=== PATIENT | male | born 1945 | race Caucasian/White ===

== ENCOUNTER 2016-12-18 12:58 | Outpatient (CLI) | payer MEDICARE ==
[~2016-12-18] VITALS: Ht 185.4 cm; Wt 93.0 kg
[~2016-12-18 12:58] MED LIST: ELMIRON; FNST5T; LNS30CCR; TMSL.4C
--- OUTSIDE RECORDS SUMMARY | 2016-12-18 13:01 | XMS REPORT | Continuity of Care Document ---
Author Author [facility] Organization [facility] Address Unknown Phone Unavailable Care Team Providers Care Senior Oracle Database Administrator Name Role Phone Scottie Castellon PCP [phone] Source Comments Some departments are not documenting in the electronic medical record. If you do not see the information that you expected, contact Release of Information in the Health Information Management department at [phone] for further assistance in locating additional records.[facility] Active Allergies and Adverse Reactions No Known Allergies Current Medications Prescription Sig. Disp. Refills Start End Date Status Date pentosan polysulfate Take 100 mg by mouth Active sodium (ELMIRON) 100 mg once. capsule tamsulosin (FLOMAX) 0.4 Take 0.4 mg by mouth Active mg capsule daily. Do not crush, chew or open capsules. Take 30 minutes following the same meal each day. lansoprazole DR(+) Take 30 mg by mouth daily Active (PREVACID) 30 mg capsule 30 minutes before breakfast. finasteride (PROSCAR) 5 Take 5 mg by mouth daily. Active mg tablet polyethylene glycol 3350 1 scoop daily. 595 g 1 06/06/20 Active (GLYCOLAX; MIRALAX) 17 16 gram/dose powder linaclotide(+) (LINZESS) Take 1 Cap by mouth daily 90 Cap 1 08/01/20 Active 290 mcg capsule 30 minutes before 16 breakfast. promethazine (PHENERGAN) Take 1 Tab by mouth four 90 Tab 1 08/01/20 Active 12.5 mg tablet times daily as needed for 16 Nausea or Vomiting. scopolamine Apply 1 Patch to top of 3 Patch 0 08/11/20 Active (TRANSDERM-SCOP) 1.5 mg 3 skin as directed every 72 16 day patch hours. Active Problems Not on file Social History Tobacco Use Types Packs/Day Years Used Date Former Smoker Alcohol Use Drinks/Week oz/Week Comments Yes 0 Standard 0.0 rare drinks or equivalent Last Filed Vital Signs Vital Sign Reading Time Taken Blood Pressure 126/70 08/01/2016 9:33 AM CDT Pulse 54 08/01/2016 9:33 AM CDT Temperature 36.5 C (97.7 F) 08/01/2016 9:33 AM CDT Respiratory Rate 16 08/01/2016 9:33 AM CDT Height 1.803 m (5' 11") 08/01/2016 9:33 AM CDT Weight 90.084 kg (198 lb 9.6 oz) 08/01/2016 9:33 AM CDT Body Mass Index 27.71 08/01/2016 9:33 AM CDT Oxygen Saturation 97% 08/01/2016 9:33 AM CDT Plan of Care Health Maintenance Due Date Last Done Comments Physical (Comprehensive) 1950 Exam Pertussis Vaccine 1954 Tetanus Vaccine 1960 Colorectal Cancer 1993 Screening Shingles Vaccine 2003 Prevnar/Pneumovax (#1) 2008 Influenza Vaccine 06/08/2016 Results from Last 3 Months Not on file
[2016-12-18] MEDS ORDERED: TRIAMCINOLONE ACET (KENALOG-40) 40 MG/ML 1 ML VIAL ONE (13:15)
[2016-12-18] MEDS ORDERED: BUPIVACAINE 0.25% 30 ML (SENSORCAINE) VIAL ONE (13:15)
[2016-12-18] MEDS ORDERED: LIDOCAINE 1% INJ 20 ML (XYLOCAINE) VIAL ONE (13:15)
[2016-12-18 13:28] VITALS: BP 145/83
[2016-12-18 14:06] VITALS: BP 159/86
--- NOTE | 2016-12-18 14:35 | Pain Medicine-Procedure ---
Procedure Pre-Op/Post-Op Diagnosis Diagnosis: sacrococcygeal disorder Indications for Operation Coccyx pain Attending Surgeon Demarco Procedure Date of Service: Dec 18, 2016 Procedure performed: Sacrococcygeal joint injection under fluoroscopic guidance PROCEDURE IN DETAIL: After obtaining informed consent from the patient, the patient's chart was reviewed. The patient was brought to the procedure room and placed in the supine position. The low back overlying the sacrum and coccyx was prepped with antiseptic solution. Then, the sacrococcygeal joint was identified under fluoroscopic guidance. 2 ml's of 1% Lidocaine was used to anesthetize the skin. A 22 gauge 3.5 inch spinal needle was inserted through the skin under fluoroscopic guidance until the needle was in the sacrococcygeal joint. Placement of the needle was confirmed with AP and lateral views. Then, after negative aspiration, 80 mg of kenalog was injected mixed with 2 ml of 0.25% Marcaine. The needle was then flushed with 1% lidocaine and removed. The patient tolerated the procedure well and a band-Aid was applied and the patient was taken to the recovery room in stable condition. Complications None ROXANA PETE MD Dec 18, 2016 2:35 pm
== END 2016-12-18 14:08 | disposition home or self-care (01) ==
LOC: CARD 12:58
PROVIDERS: ATTEND Pain Medicine Pain Medicine
DX: M53.3 Sacrococcygeal disorders, not elsewhere classified (principal); Z79.899 Other long term (current) drug therapy
CPT/HCPCS: 20605; 77002

== ENCOUNTER 2020-07-23 08:32 | Observation (INO) | payer MEDICARE ==
[~2020-07-23] VITALS: Ht 182 cm; Wt 101.1 kg
[2020-07-23] MEDS ORDERED: ACETAMINOPHEN 500 MG TAB (TYLENOL) PO PRN (09:15)
[2020-07-23] MEDS ORDERED: MELATONIN 3 MG TABLET PO PRN (09:15)
[2020-07-23] MEDS ORDERED: NS IV 1000 ML 2,100 ML IV ONE (09:15)
[2020-07-23] MEDS ORDERED: morphine INJ 10 MG/ML 1ML (SYR OR VIAL) IVP PRN (09:15)
[2020-07-23] MEDS ORDERED: HEParin 1000 UNIT/ML (10ML VIAL) FOR BOLUS IV SCH ×2 (09:15→14:15)
[2020-07-23] MEDS ORDERED: HYDROcodone/APAP 5 MG/325 MG (LORTAB) TAB PO PRN (09:15)
[2020-07-23] MEDS ORDERED: VANCOMYCIN INJECTION 0.1 MG in NS (IVPB) 250 ML IV SCH (09:15)
[2020-07-23] MEDS ORDERED: ALPRAZolam 0.25 MG (XANAX) TAB PO PRN (09:15)
[2020-07-23] MEDS ORDERED: diphenhydrAMINE 25 MG TAB (BENADRYL) PO PRN (09:15)
[2020-07-23] MEDS ORDERED: CALCIUM CARBONATE 500 MG (TUMS) TAB.CHEW PO PRN (09:15)
[2020-07-23] MEDS ORDERED: NS IV ONE (09:15)
[2020-07-23] MEDS ORDERED: ONDANSETRON 4 MG/2 ML (SDV) Z0FRAN IVP PRN (09:15)
[2020-07-23] MEDS ORDERED: DOCUSATE SODIUM 100 MG (COLACE) CAP PO PRN (09:15)
[2020-07-23] MEDS ORDERED: CEFEPIME INJECTION 1,000 MG in WATER (STERILE) FOR INJECTION 10 ML IV SCH (12:00)
--- NOTE | 2020-07-23 13:44 | Diagnostic Imaging Report ---
INDICATION: Pneumonia. TIME OF EXAM: 01:30 p.m. COMPARISON: Comparison is made with prior chest from 01/14/2008. FINDINGS: Heart size is stable. There is some patchy airspace infiltrate in the right midlung. Left lung is clear. The pulmonary vascularity is normal. There appears to be some density in the medial right base. There is no pneumothorax. IMPRESSION: Right-sided parenchymal densities, suspicious for pneumonia. The left lung is clear. Dictated by: Dictated on workstation # [id number]
[2020-07-23] MEDS: NS IV 1000 ML 1,000 ML IV SCH ×2 (13:58→14:39)
[2020-07-23 13:59] LABS: BASOPHILS # (AUTO) 0.1 10^3/uL (0.0-0.1); BASOPHILS % (AUTO) 1 % (0-10); EOSINOPHILS # (AUTO) 0.1 10^3/uL (0.0-0.3); EOSINOPHILS % (AUTO) 1 % (0-10); HEMATOCRIT 48 % (40-54); HEMOGLOBIN 15.5 g/dL (13.3-17.7); LYMPHOCYTES # (AUTO) 1.3 10^3/uL (1.0-4.0); LYMPHOCYTES % (AUTO) 17 % (12-44); MEAN CORPUSCULAR HEMOGLOBIN 30 pg (25-34); MEAN CORPUSCULAR HGB CONC 32 g/dL (32-36); MEAN CORPUSCULAR VOLUME 93 fL (80-99); MEAN PLATELET VOLUME 10.1 fL (9.0-12.2); MONOCYTES # (AUTO) 0.6 10^3/uL (0.0-1.0); MONOCYTES % (AUTO) 8 % (0-12); NEUTROPHILS # (AUTO) 5.5 10^3/uL (1.8-7.8); NEUTROPHILS % (AUTO) 73 % (42-75); PLATELET COUNT 192 10^3/uL (130-400); WHITE BLOOD COUNT 7.6 10^3/uL (4.3-11.0)
[2020-07-23] MEDS: methylPREDNISolone 40 MG/ML (Solu-MEDROL) VIAL IV SCH ×3 (14:00→19:43)
--- NOTE | 2020-07-23 14:03 | Consultation-Cardiology ---
HPI-Cardiology Cardiology Consultation: Date of Consultation 07/23/20 Time Seen by a Provider: 13:40 Date of Admission 07-23-2020 Attending Physician Samantha Castle DO Admitting Physician Scottie Castellon MD Consulting Physician YURI ROSE MD MA FACP [facility] Primary Senior Sales Administrator: Dr. Layne HPI: Chief Complaint: Reason for cardiology consultation: A-fib with RVR HPI Mr. Perez is a 74 year old male transferred to ICU 3 from [facility]. He is very [place]. He reports he began to feel SOB, weak, cough starting on Sunday of this week. He states he went to see his PCP where he was started on abx tx. He began to feel more SOB today so he went to the ED at [facility] and was found to have RUL, RLL pneumonia and be in a-fib with RVR. He denies any previous h/o a-fib. He denies any CP or palpitations or LE swelling. His main c/o SOB worse with exertion. He reports he had a colostomy placed approx 6 weeks ago d/t "bowels not working right". Review of Systems-Cardiology Review of Systems Constitutional: No chills, No fever; malaise Eyes: No vision change Ears/Nose/Throat: No epistaxis, No recent hearing loss (chronic [place]) Respiratory: As described under HPI Cardiovascular: As described under HPI Gastrointestinal: No constipation, No diarrhea, No nausea, No vomiting; other (colostomy) Genitourinary: No dysuria, No urine frequency changes, No urine coloration changes Skin: No rash on exposed areas, No ulcerations on exposed areas Psychiatric/Neurological: No anxiety, No depression, No focal weakness, No syncope Hematologic: No bleeding abnormalities ENW-Vnoryz-Rxkclc Hx Past Medical History PMH As described under Assessment. Family Medical History Family Medical History: No reported family h/o CAD. Allergies and Home Medications Allergies Coded Allergies: No Known Drug Allergies (Unverified Allergy, Unknown, 01/21/08) Home Medications Albuterol Sulfate 18 Gm Hfa.aer.ad, 2 PUFF INH Q4H PRN for SHORTNESS OF BREATH, (Reported) Amoxicillin/Potassium Clav 1 Each Tablet, 1 EA PO BID, (Reported) FILLED 07-20-2020 #20/10 DAY SUPPLY Aspirin 81 Mg Tablet.dr, 81 MG PO DAILY, (Reported) Finasteride 5 Mg Tablet, 5 MG PO DAILY, (Reported) Fluticasone/Vilanterol 1 Each Blst.w.dev, 1 PUFF INH DAILY, (Reported) Lansoprazole 30 Mg Capsule.dr, 30 MG PO DAILY, (Reported) Tamsulosin HCl 0.4 Mg Cap, 0.4 MG PO DAILY, (Reported) Patient Home Medication List Home Medication List Reviewed: Yes Physical Exam-Cardiology Physical Exam Vital Signs/I&O 07/23/20 07/23/20 07/23/20 07/23/20 13:00 14:00 15:00 15:33 Temp 36.0 36.0 Pulse 116 123 87 87 B/P (MAP) 148/107 104/83 Pulse Ox 97 98 96 96 O2 Delivery Nasal Cannula Nasal Cannula O2 Flow Rate 2.00 2.00 2.00 07/23/20 16:00 Pulse 92 B/P (MAP) 112/80 Pulse Ox 95 O2 Delivery Nasal Cannula O2 Flow Rate 2.00 Capillary Refill : Less Than 3 Seconds Constitutional: AAO x 3, well-developed, well-nourished HEENT: PERRL, hard of hearing, oral hygience is good Neck: No carotid bruit; carotid pulses are 2 + bilaterally Respiratory: No accessory muscle use, No respiratory distress; chest expansion is symmetric, chest is bilaterally symmetric, other (diminished RUL, RLL) Cardiovascular: irregularly irregular; No JVD Gastrointestinal: soft, round, other (colostomy LLQ) Neurologic/Psychiatric: grossly intact (moves all extremities) Skin: No rash on exposed areas, No ulcerations on exposed areas Data Review Labs Laboratory Tests 07/23/20 13:47: White Blood Count 7.6, Red Blood Count 5.22, Hemoglobin 15.5, Hematocrit 48, Mean Corpuscular Volume 93, Mean Corpuscular Hemoglobin 30, Mean Corpuscular Hemoglobin Concent 32, Red Cell Distribution Width 14.2, Platelet Count 192, Mean Platelet Volume 10.1, Immature Granulocyte % (Auto) 0, Neutrophils (%) (Auto) 73, Lymphocytes (%) (Auto) 17, Monocytes (%) (Auto) 8, Eosinophils (%) (Auto) 1, Basophils (%) (Auto) 1, Neutrophils # (Auto) 5.5, Lymphocytes # (Auto) 1.3, Monocytes # (Auto) 0.6, Eosinophils # (Auto) 0.1, Basophils # (Auto) 0.1, Immature Granulocyte # (Auto) 0.0, Prothrombin Time 14.0, INR Comment 1.0, Activated Partial Thromboplast Time 50H, D-Dimer 3.32H, Sodium Level 142, Potassium Level 4.2, Chloride Level 107, Carbon Dioxide Level 21, Anion Gap 14, Blood Urea Nitrogen 10, Creatinine 0.96, Estimat Glomerular Filtration Rate > 60, BUN/Creatinine Ratio 10, Glucose Level 101, Lactic Acid Level 1.41, Calcium Level 8.6, Corrected Calcium 8.6, Total Bilirubin 0.9, Aspartate Amino Transf (AST/SGOT) 15, Alanine Aminotransferase (ALT/SGPT) 18, Alkaline Phosphatase 56, Troponin I < 0.028, B-Type Natriuretic Peptide 385.4H, Total Protein 7.2, Albumin 4.0 07/23/20 13:50: Magnesium Level 1.7, Thyroid Stimulating Hormone (TSH) 2.23 07/23/20 14:45: Coronavirus 2019 ([place]) Negative Radiology NAME: SABRINA PEREZ [facility] REC#: [id number] PT STATUS: ADM Karla : 1945 PHYSICIAN: SAMANTHA CASTLE DO ADMIT DATE: 07/23/20/ICU Draft Date of Exam:07/23/20 CHEST 1 VIEW, AP/PA ONLY INDICATION: Pneumonia. TIME OF EXAM: 01:30 p.m. COMPARISON: Comparison is made with prior chest from 01/14/2008. FINDINGS: Heart size is stable. There is some patchy airspace infiltrate in the right midlung. Left lung is clear. The pulmonary vascularity is normal. There appears to be some density in the medial right base. There is no pneumothorax. IMPRESSION: Right-sided parenchymal densities, suspicious for pneumonia. The left lung is clear. Dictated on workstation # [id number] Dict: 07/23/20 1336 Trans: 07/23/20 1344 [id number] [id number] Interpreted by: ERIN HOBBS MD Electronically signed by: ECG Impression ECG Initial ECG Impression: Atrial Fibrillation A/P-Cardiology Assessment/Admission Diagnosis A-fib with RVR, new onset, first documented on 07/23/20 Pneumonia - management per medical/pulmonary services Stress test of December [address] Layne showed occ PAC, PVC with no evidence of ischemia or infarction H/O asymptomatic sinus bradycardia HTN BPH Mild bilat carotid arterial disease per u/s by Dr. Layne 2018 Colostomy Documented h/o heavy ETOH usage (6-8 beers per night) GERD Discussion and Recomendations Treat tachycardia with calcium channel alf and/or beta-blockers Start OAC with Eliquis and stop Heparin Advise echocardiogram to eval cardiac structure and function Monitor lab closely - results from [facility] reviewed. ECG from [facility] reviewed Pneumonia - management per medical/pulmonary services PPI for GI prophylaxis COVID PUI Advise immediate cessation of alcohol use - monitor for withdrawal Further recs will be based on his hospital course We would like to thank medical services for this consult Clinical Quality Measures DVT/VTE Risk/Contraindication: Risk Factor Score Per Nursin RFS Level Per Nursing on Admit: 3=High Physician Assessment Physician Assessment The above note documents the mutual evaluation of the patient by Richard Park APRN, and me I have updated the note in italics CECILIA PARK [employer] Jul 23, 2020 14:03 YURI ROSE MD [facility] Jul 23, 2020 16:32
[2020-07-23] MEDS ORDERED: HEParin DRIP 25000 UNIT/500ML 500 ML IV SCH (14:09)
[2020-07-23 14:10] LABS: CHLORIDE 107 MMOL/L (98-107); POTASSIUM 4.2 MMOL/L (3.6-5.0); SODIUM 142 MMOL/L (135-145)
[2020-07-23 14:12] LABS: CALCIUM 8.6 MG/DL (8.5-10.1)
[2020-07-23 14:13] LABS: GLUCOSE 101 MG/DL (70-105); TOTAL PROTEIN 7.2 GM/DL (6.4-8.2)
[2020-07-23 14:14] LABS: BILIRUBIN,TOTAL 0.9 MG/DL (0.1-1.0); CARBON DIOXIDE 21 MMOL/L (21-32); FIBRIN DEGRADATION PRODUCTS 3.32 UG/ML (0.00-0.49)
[2020-07-23] MEDS ORDERED: morphine INJ 4 MG/ML 1 ML (VIAL/SYRINGE) IV PRN (14:15)
[2020-07-23] MEDS ORDERED: APIXABAN 5 MG (ELIQUIS) TABLET PO NR (14:15)
[2020-07-23] MEDS ORDERED: PANTOPRAZOLE 40 MG (PROTONIX) TAB PO NR (14:15)
[2020-07-23 14:16] LABS: ALKALINE PHOSPHATASE 56 U/L (40-136); CREATININE SERUM 0.96 MG/DL (0.60-1.30); GFR ESTIMATED > 60
[2020-07-23 14:17] LABS: BUN/CREATININE RATIO 10
[2020-07-23 14:19] LABS: ALANINE AMINOTRANSFERASE 18 U/L (0-55)
[2020-07-23] MEDS: dilTIAZem DRIP PRE-MIX 125 ML IV SCH (14:39)
[2020-07-23 14:49] LABS: MAGNESIUM 1.7 MG/DL (1.6-2.4)
--- NOTE | 2020-07-23 14:51 | NUR ---
CR 0.96; CR CL > 60; PHARMACY TO DOSE VANCO X 3 DAYS; PT RECEIVED VANCO 1 GM THIS AM AT [facility]; CONTINUE WITH VANCO 1 GM IV AT 1500 (FOR VANC 2 GM BOLUS) THEN VANCO 1000 MG IV Q12H X 3 DAYS
[2020-07-23] MEDS ORDERED: VANCOMYCIN 1 GM/NS 250 ML IVPB IV NR ×2 (15:00)
[2020-07-23 15:33] VITALS: BP 104/83
--- NOTE | 2020-07-23 15:40 | Pulmonary Consultation ---
History of Present Illness History of Present Illness Time Seen by Provider: 15:35 Date of Admission Allergies and Home Medications Allergies Coded Allergies: No Known Drug Allergies (Unverified Allergy, Unknown, 01/21/08) Home Medications Albuterol Sulfate 18 Gm Hfa.aer.ad, 2 PUFF INH Q4H PRN for SHORTNESS OF BREATH, (Reported) Amoxicillin/Potassium Clav 1 Each Tablet, 1 EA PO BID, (Reported) FILLED 07-20-2020 #20/10 DAY SUPPLY Aspirin 81 Mg Tablet.dr, 81 MG PO DAILY, (Reported) Finasteride 5 Mg Tablet, 5 MG PO DAILY, (Reported) Fluticasone/Vilanterol 1 Each Blst.w.dev, 1 PUFF INH DAILY, (Reported) Lansoprazole 30 Mg Capsule.dr, 30 MG PO DAILY, (Reported) Tamsulosin HCl 0.4 Mg Cap, 0.4 MG PO DAILY, (Reported) Review of Systems Time Seen by Provider: 05:13 Sepsis Event Evaluation Height, Weight, BMI Height: 6'1.00" Weight: 205lbs. 0.0oz. 92.876699xf; 30.12 BMI Method: Exam Exam Vital Signs Date Time Temp Pulse Resp B/P (MAP) Pulse Ox O2 Delivery O2 Flow Rate FiO2 07/23/20 15:00 87 104/83 96 Nasal Cannula 2.00 07/23/20 14:00 123 98 Nasal Cannula 2.00 07/23/20 13:00 36.0 116 148/107 97 2.00 Height & Weight Height: 6'1.00" Weight: 205lbs. 0.0oz. 92.196754tx; 30.12 BMI Method: General Appearance: WD/WN, Anxious, Mild Distress HEENT: PERRL/EOMI, Normal ENT Inspection, Pharynx Normal Neck: Full Range of Motion, Normal Inspection, Non Tender Respiratory: Chest Non Tender, Decreased Breath Sounds Cardiovascular: Regular Rate, Rhythm, No Edema Capillary Refill: Less Than 3 Seconds Gastrointestinal: normal bowel sounds, non tender, soft Extremity: Normal Capillary Refill Neurologic/Psychiatric: Alert, Oriented x3 Skin: Normal Color, Warm/Dry Lymphatic: No Adenopathy Results Lab Laboratory Tests 07/23/20 13:47 Assessment/Plan Assessment/Plan Pneumonia -Currenlty NS 150 -Jaramillo cultures -Currently on Vanco and Cefepime -PUI Afib RVR -Cardizem gtt -Once Cardizem gtt is changed to PO and when ok with cardiology transfer to [facility] with tele. HTN Stress test of December [address] Layne showed occ PAC, PVC with no evidence of ischemia or infarction BERTHA NGUYEN DO Jul 23, 2020 15:40
[2020-07-23] MEDS ORDERED: FINA5TAB6 PO (16:03)
[2020-07-23] MEDS ORDERED: LANS30CA PO (16:03)
[2020-07-23] MEDS ORDERED: AMOX1TAB12 PO (16:03)
[2020-07-23] MEDS ORDERED: TMSL.4C PO (16:03)
[2020-07-23] MEDS ORDERED: FLUT1AER INH (16:03)
[2020-07-23] MEDS ORDERED: ASPI-1238 PO (16:03)
[2020-07-23] MEDS ORDERED: ALBU18HF2 INH (16:03)
--- NOTE | 2020-07-23 16:03 | NUR ---
I TRIED TO CALL THE PTS ROOM PHONE AND HE DID NOT ANSWER, I REACHED OUT TO HIS (MARY) TO TRY AND GET A MED LIST AND WAS TOLD THAT HE HAS A LIST IN HIS WALLET AND SHE BROUGHT HIS MED AND PERSONAL BELONGINGS. I EXPLAINED THAT DUE TO PT BEING A PUI I WOULD NOT BE ABLE TO LOOK THRU HIS BELONGINGS. UNFORTUNATELY SHE WAS NOT ABLE TO ANSWER ANY OF MY QUESTIONS. I GOT A MED LIST FROM [facility] AND WENT THRU THE EXT MED HISTORY TO COMPLETE THE MED REC I DID ASK EUGENE CRAIN THAT NEXT TIME HE WENT IN THE PT ROOM IF HE WOULD DOUBLE CHECK THE OTC MEDS ( SAID PT TAKES ASPIRIN 81MG) AND TO MAKE SURE I GOT EVERYTHING.
[2020-07-23] MEDS ORDERED: LACTATED RINGERS 1,000 ML IV ONE (16:05)
[2020-07-23] MEDS: CEFEPIME INJECTION 1,000 MG in WATER (STERILE) FOR INJECTION 10 ML IV SCH ×2 (16:30→20:45)
[2020-07-23] MEDS: LACTATED RINGERS 1,000 ML IV SCH (16:31)
--- NOTE | 2020-07-23 20:23 | History & Physical ---
History of Present Illness HPI/Chief Complaint CC: Dyspnea HPI: This is a 74yoWM clinic patient of Nitza Howard who was transferred from [facility] for Cardiology and critical care services higher level of care. Patient reports increasing dyspnea for 4 days, saw Nitza Howard and started on Augmentin for PNA and COVID test swab was negative. Patient reports worsened dyspnea and can't get a full breath. He recently started his heat at home using propane. Patient was swabbed again for COVID and placed in isolation. EKG revealed new onset AF w/RVR of 140. Heparin drip was started along with Cardizem drip and IVF along with broad spectrum abx of Vanc and Cefepime. Patient is stable but guarded. Source: patient, RN/MD Exam Limitations: clinical condition Date Seen 07/23/20 Time Seen by a Provider: 12:45 Attending Physician Samantha Frazier Douglas K MD Referring Physician Date of Admission Jul 23, 2020 at 12:45 Home Medications & Allergies Home Medications Reviewed patient Home Medication Reconciliation performed by pharmacy medication reconciliations lab technician and/or nursing. Patients Allergies have been reviewed. 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) Alcohol Use: Occasionally Uses Smoking Status: Former Smoker Past Medical History Genitourinary: Benign Prostatic Hyperpl Gastrointestinal: Gastroesophageal Reflux Review of Systems Constitutional: see HPI, dizziness, fever, malaise, weakness Respiratory: cough, dyspnea on exertion, phlegm, short of breath, wheezing Cardiovascular: palpitations Physical Exam Physical Exam Vital Signs Vital Signs - First Documented 07/23/20 07/23/20 13:00 14:00 Temp 36.0 Pulse 116 B/P (MAP) 148/107 Pulse Ox 97 O2 Delivery Nasal Cannula O2 Flow Rate 2.00 Capillary Refill : Less Than 3 Seconds Height, Weight, BMI Height: 6'1.00" Weight: 205lbs. 0.0oz. 92.664278it; 30.12 BMI Method: General Appearance: WD/WN, Anxious, Chronically ill, Moderate Distress Eyes: Bilateral Eye Normal Inspection, Bilateral Eye PERRL HEENT: PERRL/EOMI, Normal ENT Inspection, Pharynx Normal Neck: Full Range of Motion, Normal Inspection, Non Tender, Supple, Carotid Bruit Respiratory: Chest Non Tender, No Respiratory Distress, Accessory Muscle Use, Decreased Breath Sounds, Wheezing Cardiovascular: No Edema, No Gallop, No JVD, No Murmur, Normal Peripheral Pulses, Irregularly Irregular, Tachycardia Gastrointestinal: Normal Bowel Sounds, No Organomegaly, No Pulsatile Mass, Non Tender, Soft Back: Normal Inspection, No CVA Tenderness, No Vertebral Tenderness Extremity: Normal Capillary Refill, Normal Inspection, Normal Range of Motion, Non Tender, No Calf Tenderness, No Pedal Edema Neurologic/Psychiatric: Alert, Oriented x3, No Motor/Sensory Deficits, Normal Mood/Affect Skin: Normal Color, Warm/Dry Lymphatic: No Adenopathy Results Results/Procedures Labs Laboratory Tests 07/23/20 13:47 Patient resulted labs reviewed. Assessment/Plan Admission Diagnosis Assessment: New onset AF w/RVR PNA bilateral COVID swabbed but negative this past Sunday 4 days ago BPH GERD Hypoxia Plan: Heparin drip IV abx IVF Cardiology consultation Pulmonary consultation O2 COVID swab pending placed in isolation Home meds Admission Status: Inpatient Order (span 2 midnights) Reason for Inpatient Admission: AF w/RVR with PNA bilateral failed PO abx Diagnosis/Problems Diagnosis/Problems (1) Atrial fibrillation with rapid ventricular response (2) Pneumonia (3) Hypoxia (4) BPH (benign prostatic hyperplasia) (5) GERD (gastroesophageal reflux disease) Clinical Quality Measures DVT/VTE Risk/Contraindication: Risk Factor Score Per Nursin RFS Level Per Nursing on Admit: 3=High SAMANTHA FRAZIER DO Jul 23, 2020 20:23
[2020-07-23] MEDS: SENNA W/DOCUSATE (SENOKOT S) TABLET PO SCH (20:44)
[2020-07-23] MEDS: APIXABAN 5 MG (ELIQUIS) TABLET PO SCH (20:44)
[2020-07-23 21:07] LABS: BILIRUBIN,URINE NEGATIVE (NEGATIVE); CLARITY,URINE CLEAR; COLOR,URINE YELLOW; GLUCOSE, URINE (UA) NEGATIVE (NEGATIVE); KETONES,URINE NEGATIVE (NEGATIVE); LEUKOCYTE ESTERASE ,URINE NEGATIVE (NEGATIVE); NITRITE,URINE NEGATIVE (NEGATIVE); PH,URINE 5.5 (5-9); PROTEIN,URINE NEGATIVE (NEGATIVE)
[2020-07-23 21:15] LABS: BACTERIA,URINE NEGATIVE /HPF
[2020-07-23] MEDS: RT-ALBUTEROL INHALER HFA (VENTOLIN HFA) 18 GM IH SCH (22:10)
[2020-07-24] MEDS: RT-ALBUTEROL INHALER HFA (VENTOLIN HFA) 18 GM IH SCH ×3 (02:05→21:18)
[2020-07-24] MEDS: CEFEPIME INJECTION 1,000 MG in WATER (STERILE) FOR INJECTION 10 ML IV SCH ×2 (02:21→10:06)
[2020-07-24] MEDS: methylPREDNISolone 40 MG/ML (Solu-MEDROL) VIAL IV SCH (02:21)
[2020-07-24] MEDS: dilTIAZem DRIP PRE-MIX 125 ML IV SCH (02:21)
[2020-07-24] MEDS ORDERED: VANCOMYCIN 1 GM/NS 250 ML IVPB IV SCH ×2 (03:00)
[2020-07-24 03:29] LABS: BASOPHILS % (AUTO) 0 % (0-10); EOSINOPHILS % (AUTO) 0 % (0-10); HEMATOCRIT 47 % (40-54); LYMPHOCYTES # (AUTO) 0.3 10^3/uL (1.0-4.0); LYMPHOCYTES % (AUTO) 11 % (12-44); MEAN CORPUSCULAR HEMOGLOBIN 30 pg (25-34); MEAN CORPUSCULAR HGB CONC 32 g/dL (32-36); MEAN CORPUSCULAR VOLUME 92 fL (80-99); MEAN PLATELET VOLUME 10.9 fL (9.0-12.2); MONOCYTES % (AUTO) 1 % (0-12); NEUTROPHILS # (AUTO) 2.7 10^3/uL (1.8-7.8); NEUTROPHILS % (AUTO) 88 % (42-75); PLATELET COUNT 212 10^3/uL (130-400); WHITE BLOOD COUNT 3.1 10^3/uL (4.3-11.0)
[2020-07-24 03:42] LABS: ALBUMIN 3.9 GM/DL (3.2-4.5); CHLORIDE 106 MMOL/L (98-107); POTASSIUM 3.9 MMOL/L (3.6-5.0); SODIUM 138 MMOL/L (135-145)
[2020-07-24 03:43] LABS: CALCIUM 8.4 MG/DL (8.5-10.1)
[2020-07-24 03:44] LABS: GLUCOSE 164 MG/DL (70-105); TOTAL PROTEIN 7.1 GM/DL (6.4-8.2)
[2020-07-24 03:45] LABS: CARBON DIOXIDE 20 MMOL/L (21-32)
[2020-07-24 03:46] LABS: BILIRUBIN,TOTAL 0.8 MG/DL (0.1-1.0)
[2020-07-24 03:48] LABS: ALKALINE PHOSPHATASE 52 U/L (40-136); CREATININE SERUM 0.94 MG/DL (0.60-1.30); GFR ESTIMATED > 60
[2020-07-24 03:49] LABS: BUN/CREATININE RATIO 13
[2020-07-24 03:51] LABS: ALANINE AMINOTRANSFERASE 16 U/L (0-55)
[2020-07-24] MEDS: LACTATED RINGERS 1,000 ML IV SCH ×2 (04:27→10:07)
[2020-07-24] MEDS: MAGNESIUM 1 GM/100 ML IVPB 100 ML IV SCH (04:29)
[2020-07-24] MEDS: POTASSIUM CL 10MEQ/50ML IVPB 50 ML IV SCH (04:29)
[2020-07-24] MEDS: KCL 20 MEQ TAB (K-DUR) PO SCH (04:29)
[2020-07-24 04:48] LABS: PHOSPHORUS 3.3 MG/DL (2.3-4.7)
[2020-07-24 04:50] LABS: MAGNESIUM 1.7 MG/DL (1.6-2.4)
[2020-07-24] MEDS: APIXABAN 5 MG (ELIQUIS) TABLET PO SCH ×2 (10:06→20:47)
[2020-07-24] MEDS: PANTOPRAZOLE 40 MG (PROTONIX) TAB PO SCH (10:06)
[2020-07-24] MEDS: SENNA W/DOCUSATE (SENOKOT S) TABLET PO SCH ×3 (10:06→21:44)
--- NOTE | 2020-07-24 13:04 | Progress Note - Hospitalist ---
Subjective HPI/CC On Admission Date Seen by Provider: Jul 24, 2020 Time Seen by Provider: 09:20 CC: Dyspnea HPI: This is a 74yoWM clinic patient of Nitza Howard who was transferred from [facility] for Cardiology and critical care services higher level of care. Patient reports increasing dyspnea for 4 days, saw Nitza Howard and started on Augmentin for PNA and COVID test swab was negative. Patient reports worsened dyspnea and can't get a full breath. He recently started his heat at home using propane. Patient was swabbed again for COVID and placed in isolation. EKG revealed new onset AF w/RVR of 140. Heparin drip was started along with Cardizem drip and IVF along with broad spectrum abx of Vanc and Cefepime. Patient is stable but guarded. Subjective/Events-last exam He reports feeling short of breath. He has not had any fevers. He reports having a cough. He says he has been treated for pneumonia. He denies chest pain. He denies palpitations. Focused Exam Lactate Level 07/23/20 13:47: Lactic Acid Level 1.41 Objective Exam Vital Signs Vital Signs Date Time Temp Pulse Resp B/P (MAP) Pulse Ox O2 Delivery O2 Flow Rate FiO2 07/24/20 12:47 96 07/24/20 10:00 115/90 93 Nasal Cannula 2.00 07/24/20 00:05 36.2 Capillary Refill : Greater Than 3 Seconds General Appearance: No Apparent Distress, Obese Neck: Normal Inspection, Supple Respiratory: Lungs Clear, Normal Breath Sounds, No Respiratory Distress Cardiovascular: Irregularly Irregular, Tachycardia Gastrointestinal: Normal Bowel Sounds, Non Tender, Soft Extremity: Normal Inspection, Non Tender, No Pedal Edema Neurologic/Psychiatric: Alert, Oriented x3, No Motor/Sensory Deficits, Normal Mood/Affect Skin: Normal Color, Warm/Dry Results/Procedures Lab Laboratory Tests 07/23/20 13:47 07/24/20 02:41 Patient resulted labs reviewed. Imaging: Reviewed Imaging Films, Reviewed Imaging Report Assessment/Plan Assessment and Plan Assess & Plan/Chief Complaint Paroxysmal atrial fibrillation with rapid ventricular response Cardiology consulted, appreciate assistance Celeste Harvey Echo ordered Possible pneumonia Person under investigation for COVID-19 Chest xray with right sided infiltrate Procalcitonin 0.02, repeat again 0.02 Highly unlikely bacterial pneumonia Stop Vancomycin and Cefepime Obtain influenza swab Rapid COVID negative, PCR pending Acute respiratory failure with hypoxia Elevated d-dimer Pulmonology consulted, appreciate assistance Obtain CT Chest to rule out pulmonary embolism BPH GERD Continue home meds DVT Prophylaxis: already receiving therapeutic anticoagulation Diagnosis/Problems Diagnosis/Problems (1) Atrial fibrillation with rapid ventricular response Status: Acute (2) Person under investigation for COVID-19 Status: Acute (3) Hypoxia Status: Acute (4) Elevated d-dimer Status: Acute Clinical Quality Measures DVT/VTE Risk/Contraindication: Risk Factor Score Per Nursin RFS Level Per Nursing on Admit: 3=High MIRIAM SOOD MD Jul 24, 2020 13:04
[2020-07-24] MEDS ORDERED: IOHEXOL 350 MG/ML 100 ML (OMNIPAQUE 350) VIAL IV ONE (13:30)
[2020-07-24] MEDS ORDERED: NS 100 ML (IVPB) BAG IV ONE (13:30)
[2020-07-24] MEDS ORDERED: HOLD METFORMIN - RECEIVED CONTRAST 20 ML VIAL IV SCH (13:30)
--- NOTE | 2020-07-24 15:03 | Progress Note - Cardiology ---
Cardiology SOAP Progress Note Subjective: Shortness of breath modestly improved No cp or palp or syncope No n/v/d No focal weakness Chronic hardness of hearing Gen weakness and malaise Objective: I&O/Vital Signs 07/24/20 07/24/20 07/24/20 07/24/20 03:00 04:00 05:00 06:00 Pulse 102 91 78 106 B/P (MAP) 130/95 118/95 124/85 107/89 Pulse Ox 96 95 95 94 O2 Delivery Nasal Cannula Nasal Cannula Nasal Cannula Nasal Cannula O2 Flow Rate 2.00 2.00 2.00 2.00 07/24/20 07/24/20 07/24/20 07/24/20 07:00 07:00 07:36 08:00 Pulse 116 92 B/P (MAP) 118/97 Pulse Ox 96 96 96 O2 Delivery Nasal Cannula Nasal Cannula Nasal Cannula O2 Flow Rate 2.00 2.00 2.00 07/24/20 07/24/20 07/24/20 07/24/20 08:00 09:00 10:00 11:00 Pulse 114 104 112 89 B/P (MAP) 112/82 122/90 115/90 Pulse Ox 97 96 93 94 O2 Delivery Nasal Cannula Nasal Cannula Nasal Cannula Nasal Cannula O2 Flow Rate 2.00 2.00 2.00 2.00 07/24/20 07/24/20 07/24/20 07/24/20 12:00 12:47 13:00 14:00 Pulse 92 96 106 93 B/P (MAP) 105/76 Pulse Ox 94 96 95 O2 Delivery Nasal Cannula Nasal Cannula Nasal Cannula O2 Flow Rate 2.00 2.00 2.00 07/24/20 14:36 Pulse Ox 97 O2 Delivery Nasal Cannula O2 Flow Rate 2.00 07/24/20 00:00 Intake Total 300 ml Output Total 650 ml Balance -350 ml Weight (Pounds): 205 Weight (Ounces): 0.0 Weight (Calculated Kilograms): 92.483777 Constitutional: AAO x 3, well-developed, well-nourished Respiratory: No accessory muscle use, No respiratory distress; chest expansion is symmetric, chest is bilaterally symmetric, other (diminished RUL, RLL) Cardiovascular: irregularly irregular; No JVD Gastrointestional: soft, round, other (colostomy LLQ) Neurologic/Psychiatric: grossly intact (moves all extremities) Skin: No rash on exposed areas, No ulcerations on exposed areas Results/Procedures: Labs Laboratory Tests 07/23/20 20:55: Urine Color YELLOW, Urine Clarity CLEAR, Urine pH 5.5, Urine Specific [place] >=1.030, Urine Protein NEGATIVE, Urine Glucose (UA) NEGATIVE, Urine Ketones NEGATIVE, Urine Nitrite NEGATIVE, Urine Bilirubin NEGATIVE, Urine Urobilinogen 0.2, Urine Leukocyte Esterase NEGATIVE, Urine RBC (Auto) NEGATIVE, Urine RBC NONE, Urine WBC NONE, Urine Crystals NONE, Urine Bacteria NEGATIVE, Urine Casts NONE, Urine Mucus MODERATEH, Urine Culture Indicated NO 07/24/20 02:41: White Blood Count 3.1L, Red Blood Count 5.07, Hemoglobin 15.0, Hematocrit 47, Mean Corpuscular Volume 92, Mean Corpuscular Hemoglobin 30, Mean Corpuscular Hemoglobin Concent 32, Red Cell Distribution Width 14.2, Platelet Count 212, Mean Platelet Volume 10.9, Immature Granulocyte % (Auto) 0, Neutrophils (%) (Auto) 88H, Lymphocytes (%) (Auto) 11L, Monocytes (%) (Auto) 1, Eosinophils (%) (Auto) 0, Basophils (%) (Auto) 0, Neutrophils # (Auto) 2.7, Lymphocytes # (Auto) 0.3L, Monocytes # (Auto) 0.0, Eosinophils # (Auto) 0.0, Basophils # (Auto) 0.0, Immature Granulocyte # (Auto) 0.0, Sodium Level 138, Potassium Level 3.9, Chloride Level 106, Carbon Dioxide Level 20L, Anion Gap 12, Blood Urea Nitrogen 12, Creatinine 0.94, Estimat Glomerular Filtration Rate > 60, BUN/Creatinine Ratio 13, Glucose Level 164H, Calcium Level 8.4L, Corrected Calcium 8.5, Phosphorus Level 3.3, Magnesium Level 1.7, Total Bilirubin 0.8, Aspartate Amino Transf (AST/SGOT) 11, Alanine Aminotransferase (ALT/SGPT) 16, Alkaline [place] sphatase 52, Total Protein 7.1, Albumin 3.9, Procalcitonin 0.02 Microbiology 07/23/20 MRSA Screen - Final, Complete MRSA not isolated A/P: Assessment: Multifactorial shortness of breath: R-sided pneumonia and ac diastolic CHF due to A Fib with a somewhat rapid ventricular response A-fib with RVR, new onset, first documented on 07/23/20 Pneumonia - management per medical/pulmonary services Stress test of December [address] Layne showed occ PAC, PVC with no evidence of ischemia or infarction H/O asymptomatic sinus bradycardia HTN BPH Mild bilat carotid arterial disease per u/s by Dr. Layne 2018 Colostomy Documented h/o heavy ETOH usage (6-8 beers per night) GERD Plan: Dilt for vent rate control Apixaban for stroke prophylaxis Furosemide prn Monitor labs Med Svce managing pneumonia YURI ROSE MD FACP [facility] CCDS Jul 24, 2020 15:03
--- NOTE | 2020-07-24 16:51 | Diagnostic Imaging Report ---
PROCEDURE: CT angiography of the chest with contrast. TECHNIQUE: Multiple contiguous axial images were obtained through the chest after uneventful bolus administration of intravenous contrast. 3D reconstructed CTA MIP acquisitions were also performed. Auto Exposure Controls were utilized during the CT exam to meet ALARA standards for radiation dose reduction. DATE: July 24, 2020. COMPARISON: Chest radiograph July 23, 2020. INDICATION: 74-year-old male, right middle lobe infiltrate. Concern for pulmonary embolus. FINDINGS: There is respiratory motion artifact. There is a right hilar mass extending into the subcarinal region with associated narrowing of the right pulmonary artery measuring approximately 7.5 x 5.0 cm in axial dimension on axial image 72. This measures approximately 8.1 cm in craniocaudal extent. There are adjacent abnormally enlarged prominent right paratracheal lymph nodes and/or confluent extension of the above-mentioned mass. There is a moderate size right pleural effusion. There is mild compressive atelectasis in the right lower lobe. There is a trace to small left pleural effusion. There is no identified pneumothorax. There is no separately identified pulmonary nodule or additional lung mass. There is prominent narrowing of the right main pulmonary artery at the site of the mass. There is prominent narrowing of right upper lobe segmental pulmonary artery branches. There is no identified pulmonary embolus. The main pulmonary artery diameter is within normal limits. The heart is not grossly enlarged. There is no pericardial effusion. There are atherosclerotic calcifications. There is no identified abnormally enlarged axillary lymph node. The imaged portions of the upper abdomen are unremarkable. There are multilevel degenerative changes of the spine. There is mild height loss of the T6, T7 and T8 vertebral bodies with superior endplate concavities. There is no visible fracture line. These are age-indeterminate without comparison imaging. IMPRESSION: CT chest: 1. Large right hilar mass extending into the subcarinal region and right paratracheal region highly concerning for malignancy. Sampling for definitive diagnosis is recommended. 2. 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 3. Moderate right and trace to small left pleural effusions. 4. There is prominent narrowing of the right pulmonary artery and segmental right upper lobe pulmonary artery branches without pulmonary embolus. 5. Technically age indeterminate mild compression deformities of T6, T7 and T8. Dictated by: Dictated on workstation # [id number]
[2020-07-25 03:13] LABS: BASOPHILS % (AUTO) 0 % (0-10); EOSINOPHILS % (AUTO) 0 % (0-10); HEMATOCRIT 41 % (40-54); HEMOGLOBIN 13.5 g/dL (13.3-17.7); LYMPHOCYTES # (AUTO) 0.6 10^3/uL (1.0-4.0); LYMPHOCYTES % (AUTO) 7 % (12-44); MEAN CORPUSCULAR HEMOGLOBIN 30 pg (25-34); MEAN CORPUSCULAR HGB CONC 33 g/dL (32-36); MEAN CORPUSCULAR VOLUME 91 fL (80-99); MEAN PLATELET VOLUME 10.3 fL (9.0-12.2); MONOCYTES # (AUTO) 0.5 10^3/uL (0.0-1.0); MONOCYTES % (AUTO) 6 % (0-12); NEUTROPHILS # (AUTO) 7.5 10^3/uL (1.8-7.8); NEUTROPHILS % (AUTO) 86 % (42-75); PLATELET COUNT 197 10^3/uL (130-400); WHITE BLOOD COUNT 8.7 10^3/uL (4.3-11.0)
[2020-07-25 03:32] LABS: ALANINE AMINOTRANSFERASE 15 U/L (0-55); ALBUMIN 3.6 GM/DL (3.2-4.5); ALKALINE PHOSPHATASE 44 U/L (40-136); BILIRUBIN,TOTAL 0.6 MG/DL (0.1-1.0); BUN/CREATININE RATIO 23; CALCIUM 8.6 MG/DL (8.5-10.1); CARBON DIOXIDE 21 MMOL/L (21-32); CHLORIDE 106 MMOL/L (98-107); CREATININE SERUM 0.93 MG/DL (0.60-1.30); GFR ESTIMATED > 60; GLUCOSE 124 MG/DL (70-105); PHOSPHORUS 3.5 MG/DL (2.3-4.7); POTASSIUM 4.1 MMOL/L (3.6-5.0); SODIUM 137 MMOL/L (135-145); TOTAL PROTEIN 6.2 GM/DL (6.4-8.2)
[2020-07-25] MEDS: KCL 20 MEQ TAB (K-DUR) PO SCH (03:33)
[2020-07-25] MEDS: MAGNESIUM 1 GM/100 ML IVPB 100 ML IV SCH (03:33)
[2020-07-25] MEDS: POTASSIUM CL 10MEQ/50ML IVPB 50 ML IV SCH (03:33)
[2020-07-25 04:00] LABS: BAND NEUTROPHILS 2 %; LYMPHOCYTES % (MANUAL) 9 %; NEUTROPHILS % (MANUAL) 84 %
[2020-07-25 04:01] LABS: ANISOCYTOSIS SLIGHT; MONOCYTES % (MANUAL) 5 %; POIKILOCYTOSIS SLIGHT
--- NOTE | 2020-07-25 05:06 | Pulmonary Progress Note ---
Subjective Time Seen by a Provider: 05:02 Subjective/Events-last exam CT of chest shows MLA concerning for possible CA. Sepsis Event Evaluation Height, Weight, BMI Height: 6'1.00" Weight: 205lbs. 0.0oz. 92.987011ow; 30.12 BMI Method: Focused Exam Lactate Level 07/23/20 13:47: Lactic Acid Level 1.41 Exam Exam Vital Signs Date Time Temp Pulse Resp B/P (MAP) Pulse Ox O2 Delivery O2 Flow Rate FiO2 07/25/20 03:30 36.8 90 118/86 97 Nasal Cannula 2.00 07/25/20 01:00 120 07/24/20 23:10 36.6 82 141/76 96 Nasal Cannula 2.00 07/24/20 21:19 97 Nasal Cannula 4.00 07/24/20 19:30 95 Nasal Cannula 4.00 07/24/20 19:20 36.5 105 136/83 97 Nasal Cannula 4.00 07/24/20 19:00 136 07/24/20 15:00 87 94 Nasal Cannula 2.00 07/24/20 14:36 97 Nasal Cannula 2.00 07/24/20 14:00 93 105/76 95 Nasal Cannula 2.00 07/24/20 13:00 106 96 Nasal Cannula 2.00 07/24/20 12:47 96 07/24/20 12:00 92 94 Nasal Cannula 2.00 07/24/20 11:00 89 94 Nasal Cannula 2.00 07/24/20 10:00 112 115/90 93 Nasal Cannula 2.00 07/24/20 09:00 104 122/90 96 Nasal Cannula 2.00 07/24/20 08:00 114 112/82 97 Nasal Cannula 2.00 07/24/20 08:00 96 Nasal Cannula 2.00 07/24/20 07:36 96 Nasal Cannula 2.00 07/24/20 07:00 92 07/24/20 07:00 116 118/97 96 Nasal Cannula 2.00 07/24/20 06:00 106 107/89 94 Nasal Cannula 2.00 I & O 07/25/20 07:00 Intake Total 1330 ml Output Total 1260 ml Balance 70 ml Height & Weight Height: 6'1.00" Weight: 205lbs. 0.0oz. 92.443865jo; 30.12 BMI Method: General Appearance: No Apparent Distress, Obese HEENT: PERRL/EOMI, Normal ENT Inspection, Pharynx Normal Neck: Normal Inspection, Supple Respiratory: Lungs Clear, Normal Breath Sounds, No Respiratory Distress Cardiovascular: Irregularly Irregular, Tachycardia Capillary Refill: Less Than 3 Seconds Gastrointestinal: normal bowel sounds, non tender, soft Extremity: Normal Inspection, Non Tender, No Pedal Edema Neurologic/Psychiatric: Alert, Oriented x3, No Motor/Sensory Deficits, Normal Mood/Affect Skin: Normal Color, Warm/Dry Lymphatic: No Adenopathy Results Lab Laboratory Tests 07/23/20 13:47 07/24/20 02:41 07/25/20 02:35 Assessment/Plan Assessment/Plan MLA and right moderate pleural effusion - Doubt PNA -Echo pending -BNP is elevated -Give Lasix 40mg daily -Will plan on bronchoscopy with EBUS secondary to MLA -CT of chest shows MLA -Currenlty NS 150 -Jaramillo cultures -PUI Afib RVR -Now controlled -Cardizem HTN Stress test of December [address] Layne showed occ PAC, PVC with no evidence of ischemia or infarction BERTHA NGUYEN DO Jul 25, 2020 05:06
[2020-07-25] MEDS: RT-ALBUTEROL INHALER HFA (VENTOLIN HFA) 18 GM IH SCH (07:51)
[2020-07-25] MEDS ORDERED: KCL 20 MEQ TAB (K-DUR) PO SCH (08:00)
[2020-07-25] MEDS: APIXABAN 5 MG (ELIQUIS) TABLET PO SCH (08:08)
[2020-07-25] MEDS: PANTOPRAZOLE 40 MG (PROTONIX) TAB PO SCH (08:08)
[2020-07-25] MEDS: SENNA W/DOCUSATE (SENOKOT S) TABLET PO SCH (08:09)
[2020-07-25] MEDS ORDERED: FUROSEMIDE 40 MG/4 ML INJ (LASIX) IVP SCH (09:00)
[2020-07-25] MEDS ORDERED: APIX5TAB PO (12:29)
[2020-07-25] MEDS ORDERED: DILT300C52 PO (12:29)
--- NOTE | 2020-07-25 12:37 | Discharge Summary ---
Discharge Summary Hospital Course Was the Problem List Reviewed?: Yes Problems/Dx: (1) Atrial fibrillation with rapid ventricular response Status: Acute (2) Person under investigation for COVID-19 Status: Resolved (3) Hypoxia Status: Resolved (4) Elevated d-dimer Status: Acute (5) Mass of right lung Status: Acute Hospital Course Date of Admission: Jul 23, 2020 at 12:45 Admission Diagnosis : atrial fibrillation with rapid ventricular response Family Physician/Provider: Audra Castellon MD Date of Discharge: 07/25/20 Discharge Diagnosis: atrial fibrillation with rapid ventricular response, right lung mass Hospital Course: Bart Portillo is a 74-year-old male who was admitted with atrial fibrillation with rapid ventricular response. Cardiology was consulted and assisted with his care. He was started on IV Cardizem and his heart rates improved. He was transitioned to oral Cardizem. He was started on Eliquis for stroke prop hylaxis. He did have a new oxygen requirement and an elevated d-dimer. A CT was performed which showed no pulmonary embolism, but did reveal a right perihilar mass as well as lymphadenopathy. Pulmonology was consulted and plans to have him follow up as an outpatient for bronchoscopy and biopsy. He was not requiring any oxygen at the time of discharge. He was discharged home in stable condition. He should follow-up with his primary care physician in a couple weeks. Labs and Pending Lab Test: Laboratory Tests 07/25/20 02:35: White Blood Count 8.7, Red Blood Count 4.52, Hemoglobin 13.5, Hematocrit 41, Mean Corpuscular Volume 91, Mean Corpuscular Hemoglobin 30, Mean Corpuscular Hemoglobin Concent 33, Red Cell Distribution Width 14.3, Platelet Count 197, Mean Platelet Volume 10.3, Immature Granulocyte % (Auto) 0, Neutrophils (%) (Aut o) 86H, Lymphocytes (%) (Auto) 7L, Monocytes (%) (Auto) 6, Eosinophils (%) (Auto) 0, Basophils (%) (Auto) 0, Neutrophils # (Auto) 7.5, Lymphocytes # (Auto) 0.6L, Monocytes # (Auto) 0.5, Eosinophils # (Auto) 0.0, Basophils # (Auto) 0.0, Immature Granulocyte # (Auto) 0.0, Neutrophils % (Manual) 84, Lymphocytes % (Manual) 9, Monocytes % (Manual) 5, Band Neutrophils 2, Poikilocytosis SLIGHT, Anisocytosis SLIGHT, Sodium Level 137, Potassium Level 4.1, Chloride Level 106, Carbon Dioxide Level 21, Anion Gap 10, Blood Urea Nitrogen 21H, Creatinine 0.93, Estimat Glomerular Filtration Rate > 60, BUN/Creatinine Ratio 23, Glucose Level 124H, Calcium Level 8.6, Corrected Calcium 8.9, Phosphorus Level 3.5, Magnesium Level 2.0, Total Bilirubin 0.6, Aspartate Amino Transf (AST/SGOT) 12, Alanine Aminotransferase (ALT/SGPT) 15, Alkaline Phosphatase 44, Total Protein 6.2L, Albumin 3.6 Microbiology 07/24/20 Influenza Types A,B Antigen (MAIKOL) - Final, Complete 07/23/20 Blood Culture - Preliminary, Resulted No growth Home Meds Active Diltiazem 24Hr ER (Diltiazem HCl) 300 Mg Cap.er.24h 300 Mg PO DAILY 30 Days Eliquis (Apixaban) 5 Mg Tablet 5 Mg PO BID 30 Days Reported Aspirin EC (Aspirin) 81 Mg Tablet.dr 81 Mg PO DAILY Ventolin Hfa (Albuterol Sulfate) 18 Gm Hfa.aer.ad 2 Puff INH Q4H PRN Lansoprazole 30 Mg Capsule.dr 30 Mg PO DAILY Breo Ellipta 100-25 Mcg INH (Fluticasone/Vilanterol) 1 Each Blst.w.dev 1 Puff INH DAILY Flomax (Tamsulosin HCl) 0.4 Mg Cap 0.4 Mg PO DAILY Finasteride 5 Mg Tablet 5 Mg PO DAILY Amox Tr-K Clv 875-125 mg Tab (Amoxicillin/Potassium Clav) 1 Each Tablet 1 Ea PO BID FILLED 07-20-2020 #20/ DAY SUPPLY Assessment/Pt Instructions Take medications as prescribed. Continue diltiazem and Eliquis for atrial fibrillation. Follow up with Cardiology as scheduled. Follow up with Dr. Damon next Sunday, 08/02, to plan for bronchoscopy for biopsy of right lung mass. Follow up with your PCP in about two weeks. Discharge Planning: <30 minutes discharge planning Discharge Instructions Discharge Diet: No Restrictions Activity as Tolerated: Yes Discharge Physical Examination Vital Signs Vital Signs Date Time Temp Pulse Resp B/P (MAP) Pulse Ox O2 Delivery O2 Flow Rate FiO2 07/25/20 11:36 36.8 63 126/84 97 Room Air 07/25/20 03:30 2.00 General Appearance: No Apparent Distress, Obese HEENT: Other (hearing difficulty) Respiratory: Lungs Clear, Normal Breath Sounds, No Respiratory Distress Cardiovascular: No Murmur, Irregularly Irregular Gastrointestinal: Normal Bowel Sounds, Non Tender, Soft Extremity: Normal Inspection, Non Tender, Pedal Edema Skin: Normal Color, Warm/Dry Neurologic/Psychiatric: Alert, Oriented x3, No Motor/Sensory Deficits, Normal Mood/Affect Allergies: Coded Allergies: No Known Drug Allergies (Unverified Allergy, Unknown, 01/21/08) Copy Copies To 1: AUDRA CASTELLON MD Discharge Summary Date of Admission Jul 23, 2020 at 12:45 Date of Discharge Discharge Date: Jul 25, 2020 Discharge Time: 12:36 Admission Diagnosis atrial fibrillation with rapid ventricular response Consults/Procedures Consulations cardiology, pulmonology Discharge Diagnosis Paroxysmal atrial fibrillation with rapid ventricular response, right lung mass (1) Atrial fibrillation with rapid ventricular response Status: Acute (2) Person under investigation for COVID-19 Status: Resolved (3) Hypoxia Status: Resolved (4) Elevated d-dimer Status: Acute (5) Mass of right lung Status: Acute Clinical Quality Measures DVT/VTE Risk/Contraindication: Risk Factor Score Per Nursin RFS Level Per Nursing on Admit: 3=High MIRIAM SOOD MD Jul 25, 2020 12:37
--- NOTE | 2020-07-25 12:47 | Progress Note - Cardiology ---
Cardiology SOAP Progress Note Subjective: Less short of breath Worried and anxious of CT chest findings that Dr Damon explained to him earlier No cp or palp or syncope No n/v/d Wishes to go home Objective: I&O/Vital Signs 07/25/20 07/25/20 07/25/20 07/25/20 01:00 03:30 07:00 07:42 Temp 36.8 35.4 Pulse 120 90 127 102 B/P (MAP) 118/86 143/90 Pulse Ox 97 97 O2 Delivery Nasal Cannula Room Air O2 Flow Rate 2.00 07/25/20 07/25/20 07/25/20 07:52 08:10 11:36 Temp 36.8 Pulse 63 B/P (MAP) 126/84 Pulse Ox 94 97 97 O2 Delivery Room Air Room Air Room Air 07/25/20 00:00 Intake Total 1080 ml Output Total 1100 ml Balance -20 ml Weight (Pounds): 205 Weight (Ounces): 0.0 Weight (Calculated Kilograms): 92.492563 Constitutional: AAO x 3, well-developed, well-nourished Respiratory: No accessory muscle use, No respiratory distress; chest expansion is symmetric, chest is bilaterally symmetric, other (diminished RUL, RLL) Cardiovascular: irregularly irregular; No JVD Gastrointestional: soft, round, other (colostomy LLQ) Neurologic/Psychiatric: grossly intact (moves all extremities) Skin: No rash on exposed areas, No ulcerations on exposed areas Results/Procedures: Labs Laboratory Tests 07/25/20 02:35: White Blood Count 8.7, Red Blood Count 4.52, Hemoglobin 13.5, Hematocrit 41, Mean Corpuscular Volume 91, Mean Corpuscular Hemoglobin 30, Mean Corpuscular Hemoglobin Concent 33, Red Cell Distribution Width 14.3, Platelet Count 197, Mean Platelet Volume 10.3, Immature Granulocyte % (Auto) 0, Neutrophils (%) (Auto) 86H, Lymphocytes (%) (Auto) 7L, Monocytes (%) (Auto) 6, Eosinophils (%) (Auto) 0, Basophils (%) (Auto) 0, Neutrophils # (Auto) 7.5, Lymphocytes # (Auto) 0.6L, Monocytes # (Auto) 0.5, Eosinophils # (Auto) 0.0, Basophils # (Auto) 0.0, Immature Granulocyte # (Auto) 0.0, Neutrophils % (Manual) 84, Lymphocytes % (Manual) 9, Monocytes % (Manual) 5, Band Neutrophils 2, Poikilocytosis SLIGHT, Anisocytosis SLIGHT, Sodium Level 137, Potassium Level 4.1, Chloride Level 106, Carbon Dioxide Level 21, Anion Gap 10, Blood Urea Nitrogen 21H, Creatinine 0.93, Estimat Glomerular Filtration Rate > 60, BUN/Creatinine Ratio 23, Glucose Level 124H, Calcium Level 8.6, Corrected Calcium 8.9, Phosphorus Level 3.5, Magnesium Level 2.0, Total Bilirubin 0.6, Aspartate Amino Transf (AST/SGOT) 12, Alanine Aminotransferase (ALT/SGPT) 15, Alkaline Phosphatase 44, Total Protein 6.2L, Albumin 3.6 Microbiology 07/24/20 Influenza Types A,B Antigen (MAIKOL) - Final, Complete 07/23/20 Blood Culture - Preliminary, Resulted No growth A/P: Assessment: Multifactorial shortness of breath: R-sided pneumonia / malignancy along with some ac diastolic CHF due to A Fib with a somewhat rapid ventricular response A-fib with RVR, new onset, first documented on 07/23/20 Echo of 07/25/20: LVEF 50%, mod to sev dilatation of LA and RA, RVSP 28 mmHg Pneumonia and/or pulmonary malignancy, managed by Dr Damon. CT chest 07/24/20: Large right hilar mass extending into the subcarinal region and right paratracheal region highly concerning for malignancy. 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 Moderate right and trace to small left pleural effusions. There is prominent narrowing of the right pulmonary artery and segmental right upper lobe pulmonary artery branches without pulmonary embolus. Stress test of December [address] Layne showed occ PAC, PVC with no evidence of ischemia or infarction H/O asymptomatic sinus bradycardia HTN BPH Mild bilat carotid arterial disease per u/s by Dr. Layne 2018 Colostomy Documented h/o heavy ETOH usage (6-8 beers per night) GERD Plan: Continue dilt for vent rate control Continue apixaban for stroke prophylaxis Dr Damon managing pulm issues Outpt f/u advised YURI ROSE MD FACP [facility] CCDS Jul 25, 2020 12:47
== END 2020-07-25 13:35 | disposition home or self-care (01) ==
LOC: ICU 12:45 → CSD 07-24 16:05
PROVIDERS: ADMIT Internal Medicine; ATTEND Internal Medicine
DX: I48.91 Unspecified atrial fibrillation (principal); R91.8 Other nonspecific abnormal finding of lung field; R59.0 Localized enlarged lymph nodes; I11.0 Hypertensive heart disease with heart failure; I50.31 Acute diastolic (congestive) heart failure; J96.01 Acute respiratory failure with hypoxia; N40.0 Benign prostatic hyperplasia without lower urinary tract symptoms; K21.9 Gastro-esophageal reflux disease without esophagitis; J90 Pleural effusion, not elsewhere classified; Z93.3 Colostomy status; Z20.828 Contact with and (suspected) exposure to other viral communicable diseases; Z79.82 Long term (current) use of aspirin; Z79.899 Other long term (current) drug therapy
CPT/HCPCS: 71045; 71275; 80053 ×3; 81000; 83605; 83735 ×3; 83880; 84100 ×2; 84145 ×2; 84443; 84484; 85007; 85025 ×2; 85027; 85379; 85610; 85730; 87040; 87081; 87449; 87804; 87899; 93306; 94640 ×5; U0002; 36415; 87635

== ENCOUNTER 2020-08-03 05:35 | Outpatient (RCR) | payer MEDICARE ==
[~2020-08-03] VITALS: Ht 180.3 cm; Wt 94.1 kg
== END 2020-08-03 10:14 | disposition home or self-care (01) ==
LOC: PREOP 05:35
PROVIDERS: ATTEND Internal Medicine Critical Care Medicine
DX: Z01.812 Encounter for preprocedural laboratory examination (principal); Z20.828 Contact with and (suspected) exposure to other viral communicable diseases
CPT/HCPCS: 87635

== ENCOUNTER → 2020-08-03 | Outpatient (CLI) | payer MEDICARE ==
[~2020-08-03] MED LIST changes: +ALBU18HF2 INH; +AMOX1TAB12 PO; +APIX5TAB PO; +ASPI-1238 PO; +DILT300C52 PO; +FINA5TAB6 PO; +FLUT1AER INH; +LANS30CA PO; +TMSL.4C PO
--- NOTE | 2020-08-03 12:58 | Diagnostic Imaging Report ---
INDICATION: Lung mass. Serum blood glucose level at time of injection was 99 mg/dL. Patient was administered 16.0 mCi F-18 FDG intravenously in the right antecubital location and PET imaging was performed from the top of skull to mid thighs. Noncontrast CT was also performed for attenuation correction and anatomic correlation. Comparison is made with prior CT chest study from 07/24/2020. No prior PET studies available for comparison. There is symmetric activity throughout the brain. Soft tissues of the neck are unremarkable. There is a large soft tissue mass in the right paratracheal location which extends into the right hilum with an SUV max of 10. This correlates with a soft tissue mass noted on recent CT. Portions of the mass extend into the subcarinal location as well. The left hilum is unremarkable. There is a moderate-sized right pleural effusion and areas of subsegmental atelectasis in the right upper lobe and right middle lobe are noted. Physiologic activity within the gastrointestinal and genitourinary tracts of abdomen and pelvis is noted. No suspicious hypermetabolic activity is identified. There is some minimal muscular uptake in the right anterior upper thigh. 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 The left hilum is unremarkable. There is a moderate sized right pleural effusion. No suspicious hypermetabolic activity below the diaphragm is identified. Dictated by: Dictated on workstation # [id number]
== END ==
LOC: RAD 10:30
PROVIDERS: ATTEND Internal Medicine Critical Care Medicine
DX: R91.8 Other nonspecific abnormal finding of lung field (principal); J90 Pleural effusion, not elsewhere classified; J44.9 Chronic obstructive pulmonary disease, unspecified; Z87.891 Personal history of nicotine dependence
CPT/HCPCS: 78815; A9552

== ENCOUNTER 2020-08-04 06:52 | Inpatient (IN) | payer MEDICARE ==
[~2020-08-04] VITALS: Ht 180 cm; Wt 88.9 kg
[2020-08-04] MEDS ORDERED: LIDOCAINE PF 1% 2 ML VIAL IJ ONE (06:53)
[2020-08-04] MEDS ORDERED: LIDOCAINE PF 2% 5 ML (XYLOCAINE) VIAL INJ ONE ×2 (06:53)
--- NOTE | 2020-08-04 07:00 | NUR ---
PATIENT AMBULATORY TO ENDO SUITE #8 FOR BRONCHOSCOPY, SOB, COLOR GOOD, STATES HE TOOK NO MEDS YESTERDAY, CHANGING CLOTHES. 0710 HEART RATE 120-160, MONITOR SHOWS A FIB, HAS HX OF IT, STATES HE WAS IN HOSPITAL 10 DAYS AGO WITH IT. BP RUNNING HIGH 128/106 TO 130/108, ANESTHESIA HERE, CALLING DR. NGUYEN REGARDING DOING PROCEDURE. 0720 DR. NGUYEN WANTS PATIENT ADMITTED, WILL BE DOWN TO SEE PATIENT. CONTINUES TO RUN HIGH RATES AND BP'S. AT BEDSIDE, STATES HE DOES NOT WANT ADMITTED. SAYS "I'LL TAKE MY MED AND GO HOME, IT WILL COME DOWN". DILTIAZEM ORDERED AT HOME. 0748 MEDICATION GIVEN ORDERED WITH SIP H2O. HEART RATE 149, B/P 130/108. REMAINS ANXIOUS, DR. NGUYEN NOT HERE TO SEE PATIENT YET. AT BEDSIDE.
[2020-08-04] MEDS ORDERED: proPOfol 200 MG/20 ML (DIPRIVAN) VIAL IV ONE (07:11)
[2020-08-04] MEDS ORDERED: LIDOCAINE PF 2% 5 ML (XYLOCAINE) VIAL ONE (07:11)
[2020-08-04] MEDS ORDERED: fentaNYL INJECTION 100 MCG/2 ML AMP ONE (07:11)
[2020-08-04] MEDS ORDERED: ROCURONIUM 10 MG/ML 5 ML SYRINGE IV ONE (07:12)
[2020-08-04] MEDS ORDERED: NEOSTIGMINE 3 MG/3 ML VIAL ONE (07:12)
[2020-08-04] MEDS ORDERED: ONDANSETRON 4 MG/2 ML (SDV) Z0FRAN ONE (07:12)
[2020-08-04] MEDS ORDERED: GLYCOPYRROLATE 0.2 MG/ML (ROBINUL) 2 ML VIAL ONE (07:12)
[2020-08-04] MEDS ORDERED: LACTATED RINGERS 1,000 ML IV STA (07:19)
[2020-08-04 07:31] VITALS: BP 128/106
--- NOTE | 2020-08-04 08:30 | NUR ---
0290 DR. NGUYEN HERE EARLIER AND TALKED TO PATIENT, SALES [employer] [place], , ETC. TAKEN BY CART TO CARDIAC STEPDOWN ROOM #[id number] WITH REPORT GIVEN TO ICU NURSE [place], INFORMED OF CARDIZEM IV STAT ORDER. PATIENT ASSISTED TO BED, IN GOOD SPIRITS. NO CHANGE.
[2020-08-04] MEDS: dilTIAZem DRIP PRE-MIX 125 ML IV SCH (10:14)
[2020-08-04] MEDS ORDERED: ENOXAPARIN 100 MG/1 ML (LOVENOX) SYR SC NR (11:00)
--- NOTE | 2020-08-04 11:05 | Pulmonary Consultation ---
History of Present Illness History of Present Illness Date Seen by Provider: Aug 04, 2020 Time Seen by Provider: 11:00 Date of Admission History of Present Illness 74yo recently dx with mediastinal mass directly admitted from Endoscopy secondary to Afib RVR. Pt was scheduled for out patient bronchoscopy/EBUS. Pt refused to be admitted to ICU but agreed to cardiac step down. Allergies and Home Medications Allergies Coded Allergies: No Known Drug Allergies (Unverified Allergy, Unknown, 01/21/08) Home Medications Albuterol Sulfate 18 Gm Hfa.aer.ad, 2 PUFF INH Q4H PRN for SHORTNESS OF BREATH, (Reported) Apixaban 5 Mg Tablet, 5 MG PO BID Prescribed by: MIRIAM SOOD on 07/25/20 1229 Aspirin 81 Mg Tablet.dr, 81 MG PO DAILY, (Reported) Diltiazem HCl 300 Mg Cap.er.24h, 300 MG PO DAILY Prescribed by: MIRIAM SOOD on 07/25/20 1229 Finasteride 5 Mg Tablet, 5 MG PO DAILY, (Reported) Fluticasone/Vilanterol 1 Each Blst.w.dev, 1 PUFF INH DAILY, (Reported) Lansoprazole 30 Mg Capsule.dr, 30 MG PO DAILY, (Reported) Tamsulosin HCl 0.4 Mg Cap, 0.4 MG PO DAILY, (Reported) Past Qitozcf-Wufvwc-Fulmsc Hx Patient Social History Alcohol Use: Denies Use Recreational Drug Use: No Smoking Status: Former Smoker Type Used: Cigarettes Former Smoker, Quit: Aug 02, 1990 Recent Foreign Travel: No Contact w/Someone Who Travel: No Recent Hopitalizations: No Immunizations Up To Date Tetanus Booster (TDap): Unknown Date of Pneumonia Vaccine: May 10, 2020 Date of Influenza Vaccine: Jul 08, 2020 Seasonal Allergies Seasonal Allergies: No Past Medical History Surgeries: Yes (R RCR, ing hernia, colostomy) Respiratory: Yes (dyspnea) COPD Cardiac: Yes Atrial Fibrillation Neurological: No Genitourinary: No Benign Prostatic Hyperpl Gastrointestinal: Yes (colostomy,) Gastroesophageal Reflux Musculoskeletal: Yes Arthritis Endocrine: No HEENT: No Cancer: No Psychosocial: No Integumentary: No Blood Disorders: No Review of Systems Time Seen by Provider: 11:05 Sepsis Event Evaluation Height, Weight, BMI Height: 6'1.00" Weight: 205lbs. 0.0oz. 92.201693bf; 29.01 BMI Method: Exam Exam Vital Signs Date Time Temp Pulse Resp B/P (MAP) Pulse Ox O2 Delivery O2 Flow Rate FiO2 08/04/20 07:31 36.0 137 18 128/106 (113) 96 Room Air 08/04/20 07:08 95 Room Air Height & Weight Height: 6'1.00" Weight: 205lbs. 0.0oz. 92.606785ys; 29.01 BMI Method: Assessment/Plan Assessment/Plan Afib RVR -Start Cardizem gtt -Check stat labs and CXR -will give Lovenox sub Q 90mg x 1 today. -IVF -Consult Cardiology Mediastinal mass -Canceled today secondary to AFIB RVR -If pt appears stable will do bronch in morning -NPO after midnight. BERTHA NGUYEN DO Aug 04, 2020 11:05
--- NOTE | 2020-08-04 11:06 | Pulmonary Consultation ---
History of Present Illness History of Present Illness Date Seen by Provider: Aug 04, 2020 Time Seen by Provider: 11:07 Date of Admission History of Present Illness 74yo recently dx with mediastinal mass directly admitted from Endoscopy secondary to Afib RVR. Pt was scheduled for out patient bronchoscopy/EBUS. Pt refused to be admitted to ICU but agreed to cardiac step down. Allergies and Home Medications Allergies Coded Allergies: No Known Drug Allergies (Unverified Allergy, Unknown, 01/21/08) Home Medications Albuterol Sulfate 18 Gm Hfa.aer.ad, 2 PUFF INH Q4H PRN for SHORTNESS OF BREATH, (Reported) Apixaban 5 Mg Tablet, 5 MG PO BID Prescribed by: MIRIAM SOOD on 07/25/20 1229 Aspirin 81 Mg Tablet.dr, 81 MG PO DAILY, (Reported) Diltiazem HCl 300 Mg Cap.er.24h, 300 MG PO DAILY Prescribed by: MIRIAM SOOD on 07/25/20 1229 Finasteride 5 Mg Tablet, 5 MG PO DAILY, (Reported) Fluticasone/Vilanterol 1 Each Blst.w.dev, 1 PUFF INH DAILY, (Reported) Lansoprazole 30 Mg Capsule.dr, 30 MG PO DAILY, (Reported) Tamsulosin HCl 0.4 Mg Cap, 0.4 MG PO DAILY, (Reported) Past Qsndfei-Yietos-Ordyoc Hx Patient Social History Alcohol Use: Denies Use Recreational Drug Use: No Smoking Status: Former Smoker Type Used: Cigarettes Former Smoker, Quit: Aug 02, 1990 Recent Foreign Travel: No Contact w/Someone Who Travel: No Recent Hopitalizations: No Immunizations Up To Date Tetanus Booster (TDap): Unknown Date of Pneumonia Vaccine: May 10, 2020 Date of Influenza Vaccine: Jul 08, 2020 Seasonal Allergies Seasonal Allergies: No Past Medical History Surgeries: Yes (R RCR, ing hernia, colostomy) Respiratory: Yes (dyspnea) COPD Cardiac: Yes Atrial Fibrillation Neurological: No Genitourinary: No Benign Prostatic Hyperpl Gastrointestinal: Yes (colostomy,) Gastroesophageal Reflux Musculoskeletal: Yes Arthritis Endocrine: No HEENT: No Cancer: No Psychosocial: No Integumentary: No Blood Disorders: No Review of Systems Time Seen by Provider: 11:06 Constitutional: Weakness, Malaise; No: Fever, Chills, Sweats, Other Eyes: No: Pain, Vision change, Conjunctivae inflammation, Eyelid inflammation, Other, Redness ENT: Nose congestion; No: Ear pain, Ear discharge, Nose pain, Nose discharge, M outh pain, Mouth swelling, Throat pain, Throat swelling, Other Respiratory: Cough, Dry, Shortness of breath, SOB with excertion Cardiovascular: No: Chest Pain, Palpitations, Orthopnea, Paroxysmal Noc. Dyspnea, Edema, Lt Headedness, Other Gastrointestinal: No: Nausea, Vomiting, Abdominal Pain, Diarrhea, Constipation, Melena, Hematochezia, Other Genitourinary: No Dysuria, No Frequency, No Incontinence, No Hematuria, No Ret ention, No Other Sepsis Event Evaluation Height, Weight, BMI Height: 6'1.00" Weight: 205lbs. 0.0oz. 92.943500on; 29.01 BMI Method: Exam Exam Vital Signs Date Time Temp Pulse Resp B/P (MAP) Pulse Ox O2 Delivery O2 Flow Rate FiO2 08/04/20 07:31 36.0 137 18 128/106 (113) 96 Room Air 08/04/20 07:08 95 Room Air Height & Weight Height: 6'1.00" Weight: 205lbs. 0.0oz. 92.419509np; 29.01 BMI Method: General Appearance: No Apparent Distress, WD/WN, Anxious HEENT: PERRL/EOMI, Pharynx Normal Neck: Full Range of Motion, Non Tender, Supple Respiratory: Chest Non Tender, No Accessory Muscle Use, No Respiratory Distress, Crackles, Decreased Breath Sounds Cardiovascular: Regular Rate, Rhythm, No Edema Capillary Refill: Less Than 3 Seconds Gastrointestinal: normal bowel sounds, non tender, soft Extremity: Normal Capillary Refill, Non Tender, No Pedal Edema Neurologic/Psychiatric: Alert, Oriented x3 Skin: Normal Color, Warm/Dry Lymphatic: No Adenopathy Assessment/Plan Assessment/Plan Afib RVR -Start Cardizem gtt -Check stat labs and CXR -will give Lovenox sub Q 90mg x 1 today. -IVF -Consult Cardiology Mediastinal mass -Canceled today secondary to AFIB RVR -If pt appears stable will do bronch in morning -NPO after midnight. BERTHA NGUYEN DO Aug 04, 2020 11:06
[2020-08-04] MEDS ORDERED: ADVAIR HFA 115/21 MCG INHALER 8 GM IH SCH (11:18)
[2020-08-04 11:37] LABS: BASOPHILS # (AUTO) 0.1 10^3/uL (0.0-0.1); BASOPHILS % (AUTO) 1 % (0-10); EOSINOPHILS # (AUTO) 0.1 10^3/uL (0.0-0.3); EOSINOPHILS % (AUTO) 1 % (0-10); HEMATOCRIT 48 % (40-54); HEMOGLOBIN 15.6 g/dL (13.3-17.7); LYMPHOCYTES # (AUTO) 1.1 10^3/uL (1.0-4.0); LYMPHOCYTES % (AUTO) 18 % (12-44); MEAN CORPUSCULAR HEMOGLOBIN 30 pg (25-34); MEAN CORPUSCULAR HGB CONC 32 g/dL (32-36); MEAN CORPUSCULAR VOLUME 92 fL (80-99); MEAN PLATELET VOLUME 9.9 fL (9.0-12.2); MONOCYTES # (AUTO) 0.4 10^3/uL (0.0-1.0); MONOCYTES % (AUTO) 7 % (0-12); NEUTROPHILS # (AUTO) 4.6 10^3/uL (1.8-7.8); NEUTROPHILS % (AUTO) 73 % (42-75); PLATELET COUNT 192 10^3/uL (130-400); WHITE BLOOD COUNT 6.3 10^3/uL (4.3-11.0)
[2020-08-04 11:47] LABS: ALBUMIN 3.9 GM/DL (3.2-4.5); CHLORIDE 106 MMOL/L (98-107); POTASSIUM 4.5 MMOL/L (3.6-5.0); SODIUM 141 MMOL/L (135-145)
[2020-08-04 11:48] LABS: CALCIUM 8.7 MG/DL (8.5-10.1)
[2020-08-04 11:50] LABS: GLUCOSE 101 MG/DL (70-105)
[2020-08-04 11:51] LABS: CARBON DIOXIDE 25 MMOL/L (21-32)
[2020-08-04 11:52] LABS: BILIRUBIN,TOTAL 0.8 MG/DL (0.1-1.0)
[2020-08-04 11:53] LABS: ALKALINE PHOSPHATASE 43 U/L (40-136); CREATININE SERUM 1.05 MG/DL (0.60-1.30); GFR ESTIMATED > 60; PHOSPHORUS 3.2 MG/DL (2.3-4.7)
--- NOTE | 2020-08-04 11:53 | Consultation-Cardiology ---
HPI-Cardiology Cardiology Consultation Date of Consultation 08/04/20 Date of Admission Time Seen by Provider: 11:07 HPI Patient is a 74 y/o male with history of HTN, HLP, recently diagnosed new onset atrial fibrillation earlier this month. Was scheduled for bronchoscopy with Dr Damon after having PET positive mediastinal mass. Was found to be in AFib with RVR on admission to endoscopy this morning. Patient reports to me he had been holding his Cardizem in addition to his Eliquis for the past 2 days. Denies any chest pain. Reports some dyspnea on exertion. Denies any dizziness, lightheadedness or syncope. No other complaints at this time. Home Medications & Allergies Allergies: Coded Allergies: No Known Drug Allergies (Unverified Allergy, Unknown, 01/21/08) Home Medication List Reviewed: Yes WNR-Oucajl-Kkqhgn Hx Patient Social History Alcohol Use: Denies Use Recreational Drug Use: No Smoking Status: Former Smoker Type Used: Cigarettes Recent Foreign Travel: No Recent Infectious Disease Expo: No Recent Hopitalizations: No Immunizations Up To Date Tetanus Booster (TDap): Unknown Date of Pneumonia Vaccine: May 10, 2020 Date of Influenza Vaccine: Jul 08, 2020 Past Medical History HTN, AFib Family Medical History Significant Family History: No Pertinent Family Hx Review of Systems-General Review of Systems Constitutional: see HPI; No chills, No diaphoresis, No fever, No malaise EENTM: see HPI, no symptoms reported; No blurred vision, No double vision Respiratory: see HPI; No cough; dyspnea on exertion; No orthopnea; short of breath; No wheezing Cardiovascular: see HPI; No chest pain, No edema, No Hx of Intervention; palpitations Gastrointestinal: No abdominal pain, No constipation Genitourinary: No dysuria, No frequency Musculoskeletal: No back pain, No joint pain Skin: No lesions Psychiatric/Neurological: Denies Anxiety Reviewed Test Results Reviewed Test Results Lab Laboratory Tests 08/04/20 11:22: White Blood Count 6.3, Red Blood Count 5.25, Hemoglobin 15.6, Hematocrit 48, Mean Corpuscular Volume 92, Mean Corpuscular Hemoglobin 30, Mean Corpuscular Hemoglobin Concent 32, Red Cell Distribution Width 14.5, Platelet Count 192, Mean Platelet Volume 9.9, Immature Granulocyte % (Auto) 0, Neutrophils (%) (Auto) 73, Lymphocytes (%) (Auto) 18, Monocytes (%) (Auto) 7, Eosinophils (%) (Auto) 1, Basophils (%) (Auto) 1, Neutrophils # (Auto) 4.6, Lymphocytes # (Auto) 1.1, Monocytes # (Auto) 0.4, Eosinophils # (Auto) 0.1, Basophils # (Auto) 0.1, Immature Granulocyte # (Auto) 0.0, Sodium Level 141, Potassium Level 4.5, Chloride Level 106, Carbon Dioxide Level 25, Anion Gap 10, Creatinine 1.05, Estimat Glomerular Filtration Rate > 60, Glucose Level 101, Calcium Level 8.7, C orrected Calcium 8.8, Phosphorus Level 3.2, Total Bilirubin 0.8, Alkaline Phosphatase 43, Total Protein 7.0, Albumin 3.9 Physical Exam Physical Exam Vital Signs Vital Signs - First Documented 08/04/20 08/04/20 07:08 07:31 Temp 36.0 Pulse 137 Resp 18 B/P (MAP) 128/106 (113) Pulse Ox 95 O2 Delivery Room Air Capillary Refill : Height, Weight, BMI Height: 6'1.00" Weight: 205lbs. 0.0oz. 92.467131mt; 29.01 BMI Method: General Appearance: No Apparent Distress, WD/WN HEENT: PERRL/EOMI Neck: Full Range of Motion, Normal Inspection, Non Tender, Supple Respiratory: Chest Non Tender, Lungs Clear, Normal Breath Sounds, No Accessory Muscle Use, No Respiratory Distress Cardiovascular: No Edema, No JVD, No Murmur, Normal Peripheral Pulses, Irregularly Irregular, Tachycardia Gastrointestinal: No Pulsatile Mass, Non Tender, Soft Back: No CVA Tenderness Extremity: Non Tender, No Calf Tenderness Neurologic/Psychiatric: Alert, Oriented x3 A/P-Cardiology Admission Diagnosis Afib with RVR Mediastinal mass HTN [place] Assessment/Plan Afib with RVR, first documented 07/23/2020. Has been maintained on Cardizem and Eliquis as outpatient. Patient reports holding both medications for the last 48 hours in anticipation for bronchoscopy. I will start patient on Cardizem gtt, give Eliquis x 1 dose. Continue to monitor. Mediastinal mass, planning for bronchoscopy with Dr. Damon tomorrow. Recent hospitalization for pneumonia Stress test of December 2014 showed occ PAC, PVC with no evidence of ischemia or infarction H/O asymptomatic sinus bradycardia, continue to monitor. HTN, continue to monitor. BPH Mild bilat carotid arterial disease per u/s by Dr. Layne 2018, continue to monitor as outpatient. Colostomy Documented h/o heavy ETOH usage (6-8 beers per night) GERD Thank you for allowing us to participate in the management of Mr. Portillo. This is Myesha Alicea PA-C, as a scribe for Dr. Layne. Patient was seen and evaluated with Myesha, examination performed, management plan was discussed, agree with the current scribed note, I made few changes to the note using Italic font Patient was laying down in bed, feeling comfortable, denied any chest pain Discussed the management plan with Dr. Damon, I will add metoprolol and monitor tolerance and response MYESHA GEE Aug 04, 2020 11:53 am BO LAYNE MD Aug 04, 2020 3:52 pm
[2020-08-04 11:54] LABS: BUN/CREATININE RATIO 18
[2020-08-04 11:56] LABS: ALANINE AMINOTRANSFERASE 15 U/L (0-55); MAGNESIUM 2.1 MG/DL (1.6-2.4)
[2020-08-04 12:14] VITALS: BP 118/52
--- NOTE | 2020-08-04 12:22 | Diagnostic Imaging Report ---
INDICATION: Shortness of breath Portable chest 11:22 AM There is a patchy infiltrate in the perihilar region right lung. There is a small right pleural effusion. Left lung is clear. IMPRESSION: Right perihilar infiltrate with small right pleural effusion. These appear similar to prior exam dated 07/23/2020. Dictated by: Dictated on workstation # [id number]
[2020-08-04] MEDS: PANTOPRAZOLE 40 MG (PROTONIX) TAB PO SCH (12:43)
[2020-08-04] MEDS: FINASTERIDE (PROSCAR) 5 MG TAB PO SCH (12:43)
[2020-08-04] MEDS: TAMSULOSIN 0.4 MG (FLOMAX) CAP PO SCH (12:43)
--- NOTE | 2020-08-04 14:06 | NUR ---
Received dietary consult for recent colostomy. Met with pt to discuss foods that he could eat. Discussed importance of chewing food as it could cause issues with food entering the ostomy. Pt had concerns with foods with skins on them. Discussed that some foods may cause issues but proper preparation (cooked/shredded/pureed) of foods may be easier to tolerate. Note pt does not have a diet order placed at this time. Would recommend a DYS2 Mechanically Altered diet at this time to determine tolerance. Will continue to follow and reassess as pt needs, intake, and status change. Melanie Jones, MS RD LD
[2020-08-04] MEDS: ADVAIR HFA 115/21 MCG INHALER 8 GM IH SCH (14:20)
[2020-08-04 14:26] VITALS: BP 118/52
[2020-08-04 15:58] VITALS: BP 104/84
[2020-08-04] MEDS ORDERED: CATHETER FLUSH 10 ML SYR IV PRN (16:00)
[2020-08-04] MEDS: meTOprolol 5 MG/5 ML (LOPRESSOR) VIAL IV SCH (17:56)
[2020-08-04 19:36] VITALS: BP 113/92
[2020-08-04] MEDS: CATHETER FLUSH 10 ML SYR IV SCH (20:30)
[2020-08-05] VITALS: BP 106/82
[2020-08-05] MEDS: meTOprolol 5 MG/5 ML (LOPRESSOR) VIAL IV SCH ×4 (00:21→18:02)
[2020-08-05 04:00] VITALS: BP 121/88
[2020-08-05 04:01] LABS: BASOPHILS # (AUTO) 0.1 10^3/uL (0.0-0.1); BASOPHILS % (AUTO) 1 % (0-10); EOSINOPHILS # (AUTO) 0.2 10^3/uL (0.0-0.3); EOSINOPHILS % (AUTO) 2 % (0-10); HEMATOCRIT 49 % (40-54); HEMOGLOBIN 15.4 g/dL (13.3-17.7); LYMPHOCYTES # (AUTO) 1.9 10^3/uL (1.0-4.0); LYMPHOCYTES % (AUTO) 29 % (12-44); MEAN CORPUSCULAR HEMOGLOBIN 29 pg (25-34); MEAN CORPUSCULAR HGB CONC 32 g/dL (32-36); MEAN CORPUSCULAR VOLUME 92 fL (80-99); MEAN PLATELET VOLUME 10.7 fL (9.0-12.2); MONOCYTES # (AUTO) 0.6 10^3/uL (0.0-1.0); MONOCYTES % (AUTO) 9 % (0-12); NEUTROPHILS # (AUTO) 3.7 10^3/uL (1.8-7.8); NEUTROPHILS % (AUTO) 57 % (42-75); PLATELET COUNT 192 10^3/uL (130-400); WHITE BLOOD COUNT 6.4 10^3/uL (4.3-11.0)
[2020-08-05 04:21] LABS: ALBUMIN 3.9 GM/DL (3.2-4.5); CHLORIDE 104 MMOL/L (98-107); POTASSIUM 3.9 MMOL/L (3.6-5.0); SODIUM 138 MMOL/L (135-145)
[2020-08-05 04:22] LABS: CALCIUM 8.7 MG/DL (8.5-10.1)
[2020-08-05 04:23] LABS: GLUCOSE 91 MG/DL (70-105)
[2020-08-05 04:24] LABS: TOTAL PROTEIN 6.9 GM/DL (6.4-8.2)
[2020-08-05 04:25] LABS: BILIRUBIN,TOTAL 1.6 MG/DL (0.1-1.0); CARBON DIOXIDE 22 MMOL/L (21-32)
[2020-08-05 04:27] LABS: ALKALINE PHOSPHATASE 47 U/L (40-136); CREATININE SERUM 0.97 MG/DL (0.60-1.30); GFR ESTIMATED > 60; PHOSPHORUS 3.4 MG/DL (2.3-4.7)
[2020-08-05 04:28] LABS: BUN/CREATININE RATIO 18
[2020-08-05 04:30] LABS: ALANINE AMINOTRANSFERASE 15 U/L (0-55); MAGNESIUM 2.1 MG/DL (1.6-2.4)
[2020-08-05] MEDS: CATHETER FLUSH 10 ML SYR IV SCH ×2 (06:44→14:38)
[2020-08-05] MEDS: dilTIAZem DRIP PRE-MIX 125 ML IV SCH ×2 (06:48→08:23)
[2020-08-05] MEDS ORDERED: LIDOCAINE PF 2% 5 ML (XYLOCAINE) VIAL ONE (07:39)
[2020-08-05] MEDS ORDERED: fentaNYL INJECTION 100 MCG/2 ML AMP ONE (07:39)
[2020-08-05] MEDS ORDERED: proPOfol 200 MG/20 ML (DIPRIVAN) VIAL IV ONE (07:39)
[2020-08-05] MEDS ORDERED: SEVOFLURANE (ULTANE) 15 ML INHAL SOLN ONE (07:39)
[2020-08-05] MEDS ORDERED: ONDANSETRON 4 MG/2 ML (SDV) Z0FRAN ONE (07:40)
[2020-08-05] MEDS ORDERED: ROCURONIUM 10 MG/ML 5 ML SYRINGE IV ONE (07:40)
[2020-08-05 07:45] VITALS: BP 113/74
[2020-08-05] MEDS ORDERED: LACTATED RINGERS 1,000 ML IV ONE ×3 (07:59→08:15)
--- NOTE | 2020-08-05 08:47 | Cardiology Progress Note ---
Subjective Date Seen by Provider: Aug 05, 2020 Time Seen by Provider: 08:45 Subjective/Events-last exam Patient is laying down in bed, heart rate is better controlled on diltiazem drip. No new complaint Review of Systems General: No Chills, No Night Sweats, No Fatigue, No Malaise, No Appetite, No Other HEENT: No Head Aches, No Visual Changes, No Eye Pain, No Ear Pain, No Dysphasia, No Sinus Congestion, No Post Nasal Drip, No Sore Throat, No Other Pulmonary: No Dyspnea, No Cough, No Pleuritic Chest Pain, No Other Cardiovascular: No: Chest Pain, Palpitations, Orthopnea, Paroxysmal Noc. Dyspnea, Edema, Lt Headedness, Other Gastrointestinal: No: Nausea, Vomiting, Abdominal Pain, Diarrhea, Constipation, Melena, Hematochezia, Other Objective-Cardiology Exam Last Set of Vital Signs Vital Signs 08/05/20 04:00 Temp 36.2 Pulse 77 Resp 24 B/P (MAP) 121/88 (99) Pulse Ox 94 O2 Delivery Room Air Capillary Refill : Less Than 3 SecondsLess Than 3 Seconds I&O Intake and Output 08/05/20 00:00 Intake Total 600 ml Balance 600 ml Intake Oral 600 ml # Voids 5 Daily Weight Change No No No General: Alert, Oriented X3, Cooperative HEENT: Atraumatic, PERRLA Neck: Supple, No JVD, No Thyromegaly Lungs: Clear to Auscultation, Normal Air Movement Heart: Normal S1, Normal S2, No Murmurs, Other (atrial fibrillation) Abdomen: Normal Bowel Sounds, Soft, No Tenderness, No Hepatosplenomegaly, No Masses Extremities: No Clubbing, No Cyanosis, No Edema, Normal Pulses, No Tenderness/Swelling Skin: No Rashes, No Breakdown, No Significant Lesion Neuro: Normal Gait, Normal Speech, Strength at 5/5 X4 Ext, Normal Tone, Sensation Intact Psych/Mental Status: Mental Status NL, Mood NL Results Lab Laboratory Tests 08/04/20 11:22 08/05/20 02:58 08/05/20 03:10 A/P-Cardiology Admission Diagnosis Afib with RVR Mediastinal mass HTN [place] Assessment/Plan Afib with RVR, first documented 07/23/2020. Has been maintained on Cardizem and Eliquis as outpatient. Patient reports holding both medications for the last 48 hours in anticipation for bronchoscopy. Continue on Cardizem drip and planning to switch him to oral after the procedure. Mediastinal mass, planning for bronchoscopy with Dr. Damon tomorrow. Recent hospitalization for pneumonia Stress test of December 2014 showed occ PAC, PVC with no evidence of ischemia or infarction H/O asymptomatic sinus bradycardia, continue to monitor. HTN, continue to monitor. BPH Mild bilat carotid arterial disease per u/s by Dr. Layne 2018, continue to monitor as outpatient. Colostomy Documented h/o heavy ETOH usage (6-8 beers per night) GERD Clinical Quality Measures DVT/VTE Risk/Contraindication: Risk Factor Score Per Nursin RFS Level Per Nursing on Admit: 2=Moderate BO LAYNE MD Aug 05, 2020 8:46 am
--- NOTE | 2020-08-05 08:49 | Progress Note-Pre Operative ---
Pre-Operative Progress Note H&P Reviewed The H&P was reviewed, patient examined and no changes noted. Time Seen by Provider: 08:48 Date H&P Reviewed: Aug 05, 2020 Time H&P Reviewed: 08:48 Pre-Operative Diagnosis: lung mass BERTHA NGUYEN DO Aug 05, 2020 08:49
[2020-08-05] MEDS ORDERED: PANTOPRAZOLE 40 MG (PROTONIX) TAB PO SCH (09:00)
[2020-08-05] MEDS ORDERED: TAMSULOSIN 0.4 MG (FLOMAX) CAP PO SCH (09:00)
[2020-08-05] MEDS ORDERED: FINASTERIDE (PROSCAR) 5 MG TAB PO SCH (09:00)
[2020-08-05] MEDS ORDERED: ENOXAPARIN 100 MG/1 ML (LOVENOX) SYR SC NR (09:07)
[2020-08-05] MEDS: FINASTERIDE (PROSCAR) 5 MG TAB PO SCH (09:22)
[2020-08-05] MEDS: PANTOPRAZOLE 40 MG (PROTONIX) TAB PO SCH (09:22)
[2020-08-05] MEDS: TAMSULOSIN 0.4 MG (FLOMAX) CAP PO SCH (09:22)
[2020-08-05] MEDS: ADVAIR HFA 115/21 MCG INHALER 8 GM IH SCH (10:06)
--- NOTE | 2020-08-05 10:59 | Pulmonary Progress Note ---
Subjective Time Seen by a Provider: 07:00 Subjective/Events-last exam Plan is for bronch today. Sepsis Event Evaluation Height, Weight, BMI Height: 6'1.00" Weight: 205lbs. 0.0oz. 92.976733za; 29.01 BMI Method: Exam Exam Vital Signs Date Time Temp Pulse Resp B/P (MAP) Pulse Ox O2 Delivery O2 Flow Rate FiO2 08/05/20 10:06 95 Room Air 08/05/20 08:00 Room Air 08/05/20 08:00 Room Air 08/05/20 07:45 107 17 113/74 (87) 93 Room Air 08/05/20 07:35 96 Room Air 08/05/20 07:01 96 08/05/20 04:00 Room Air 08/05/20 04:00 36.2 77 24 121/88 (99) 94 Room Air 08/05/20 01:00 75 08/05/20 00:00 Room Air 08/05/20 00:00 36.0 87 22 106/82 (90) 95 Room Air 08/04/20 20:10 Room Air 08/04/20 20:10 Room Air 08/04/20 19:36 36.8 90 14 113/92 (99) 96 Room Air 08/04/20 19:00 74 08/04/20 16:00 93 Room Air 08/04/20 15:58 36.6 85 19 104/84 (91) 93 Room Air 08/04/20 14:26 36.7 115 16 118/52 97 Room Air 08/04/20 14:23 97 Room Air 08/04/20 12:53 115 08/04/20 12:14 36.7 93 16 118/52 (74) 97 Room Air 08/04/20 12:06 Room Air 08/04/20 11:33 Room Air I & O 08/05/20 07:00 Intake Total 600 ml Balance 600 ml Height & Weight Height: 6'1.00" Weight: 205lbs. 0.0oz. 92.124818yz; 29.01 BMI Method: General Appearance: No Apparent Distress, WD/WN HEENT: PERRL/EOMI Neck: Full Range of Motion, Normal Inspection, Non Tender, Supple Respiratory: Chest Non Tender, Lungs Clear, Normal Breath Sounds, No Accessory Muscle Use, No Respiratory Distress Cardiovascular: No Edema, No JVD, No Murmur, Normal Peripheral Pulses, Irregularly Irregular, Tachycardia Capillary Refill: Less Than 3 Seconds Extremity: Non Tender, No Calf Tenderness Neurologic/Psychiatric: Alert, Oriented x3 Results Lab Laboratory Tests 08/04/20 11:22 08/05/20 02:58 08/05/20 03:10 Assessment/Plan Assessment/Plan Afib RVR -Start Cardizem gtt -Afib controlled with Cardizem. -Cardizem was d/c'd prior to going down to endoscopy and pt developed RVR. Procedure cancelled per anesthesia. -will give Lovenox sub Q 90mg x 1 today. -IVF -Cardiology following Mediastinal mass -Canceled today secondary to AFIB RVR -If pt appears stable will do bronch in morning -NPO after midnight. BERTHA NGUYEN DO Aug 05, 2020 10:59
[2020-08-05 11:39] VITALS: BP 102/69
--- NOTE | 2020-08-05 15:28 | NUR ---
Pt is Rastafarian. Entry Level Account Representative provided prayer and Communion.
[2020-08-05 16:00] VITALS: BP 89/48
--- NOTE | 2020-08-05 18:02 | NUR ---
prior to iv metoprolol b/p was 109/76
[2020-08-05 20:00] VITALS: BP 72/40
[2020-08-06] MEDS: CATHETER FLUSH 10 ML SYR IV SCH ×2 (00:10→06:18)
[2020-08-06] MEDS: meTOprolol 5 MG/5 ML (LOPRESSOR) VIAL IV SCH ×2 (00:10→06:18)
[2020-08-06 00:12] VITALS: BP 124/86
[2020-08-06] MEDS: dilTIAZem DRIP PRE-MIX 125 ML IV SCH (01:56)
[2020-08-06 03:21] VITALS: BP 147/81
[2020-08-06 03:25] LABS: BASOPHILS % (AUTO) 1 % (0-10); EOSINOPHILS # (AUTO) 0.2 10^3/uL (0.0-0.3); EOSINOPHILS % (AUTO) 3 % (0-10); HEMATOCRIT 45 % (40-54); HEMOGLOBIN 14.5 g/dL (13.3-17.7); LYMPHOCYTES # (AUTO) 1.2 10^3/uL (1.0-4.0); LYMPHOCYTES % (AUTO) 19 % (12-44); MEAN CORPUSCULAR HEMOGLOBIN 30 pg (25-34); MEAN CORPUSCULAR HGB CONC 32 g/dL (32-36); MEAN CORPUSCULAR VOLUME 92 fL (80-99); MEAN PLATELET VOLUME 10.1 fL (9.0-12.2); MONOCYTES # (AUTO) 0.5 10^3/uL (0.0-1.0); MONOCYTES % (AUTO) 9 % (0-12); NEUTROPHILS # (AUTO) 4.2 10^3/uL (1.8-7.8); NEUTROPHILS % (AUTO) 68 % (42-75); PLATELET COUNT 173 10^3/uL (130-400); WHITE BLOOD COUNT 6.2 10^3/uL (4.3-11.0)
[2020-08-06 03:38] LABS: ALBUMIN 3.7 GM/DL (3.2-4.5); CHLORIDE 106 MMOL/L (98-107); POTASSIUM 3.9 MMOL/L (3.6-5.0); SODIUM 139 MMOL/L (135-145)
[2020-08-06 03:39] LABS: CALCIUM 8.5 MG/DL (8.5-10.1)
[2020-08-06 03:41] LABS: GLUCOSE 111 MG/DL (70-105); TOTAL PROTEIN 6.3 GM/DL (6.4-8.2)
[2020-08-06 03:42] LABS: BILIRUBIN,TOTAL 0.8 MG/DL (0.1-1.0); CARBON DIOXIDE 23 MMOL/L (21-32)
[2020-08-06 03:44] LABS: ALKALINE PHOSPHATASE 43 U/L (40-136); CREATININE SERUM 1.03 MG/DL (0.60-1.30); GFR ESTIMATED > 60; PHOSPHORUS 3.3 MG/DL (2.3-4.7)
[2020-08-06 03:45] LABS: BUN/CREATININE RATIO 24
[2020-08-06 03:47] LABS: ALANINE AMINOTRANSFERASE 13 U/L (0-55); MAGNESIUM 2.1 MG/DL (1.6-2.4)
[2020-08-06] MEDS ORDERED: proPOfol 200 MG/20 ML (DIPRIVAN) VIAL IV ONE (06:42)
[2020-08-06] MEDS ORDERED: fentaNYL INJECTION 100 MCG/2 ML AMP ONE (06:42)
[2020-08-06] MEDS ORDERED: LIDOCAINE PF 2% 5 ML (XYLOCAINE) VIAL ONE (06:43)
[2020-08-06] MEDS ORDERED: MIDAZOLAM 2 MG/2 ML (VERSED) VIAL ONE (06:43)
[2020-08-06] MEDS ORDERED: NEOSTIGMINE 3 MG/3 ML VIAL ONE (06:43)
[2020-08-06] MEDS ORDERED: GLYCOPYRROLATE 0.2 MG/ML (ROBINUL) 2 ML VIAL ONE (06:43)
[2020-08-06] MEDS ORDERED: ONDANSETRON 4 MG/2 ML (SDV) Z0FRAN ONE (06:43)
[2020-08-06] MEDS ORDERED: ROCURONIUM 10 MG/ML 5 ML SYRINGE IV ONE (06:43)
[2020-08-06] MEDS ORDERED: LACTATED RINGERS 1,000 ML IV ONE ×2 (06:57→07:30)
--- NOTE | 2020-08-06 07:06 | Pulmonary Progress Note ---
Subjective Time Seen by a Provider: 07:05 Subjective/Events-last exam No complications noted. Sepsis Event Evaluation Height, Weight, BMI Height: 6'1.00" Weight: 205lbs. 0.0oz. 92.359870ee; 29.01 BMI Method: Exam Exam Vital Signs Date Time Temp Pulse Resp B/P (MAP) Pulse Ox O2 Delivery O2 Flow Rate FiO2 08/06/20 03:22 94 Room Air 08/06/20 03:21 35.8 71 18 147/81 (103) 94 Room Air 08/06/20 01:00 90 08/06/20 00:12 36.2 87 18 124/86 (99) 97 Room Air 08/06/20 00:10 Room Air 08/05/20 20:00 35.5 86 16 72/40 (51) 97 Room Air 08/05/20 20:00 97 Room Air 08/05/20 20:00 97 Room Air 08/05/20 19:00 115 08/05/20 16:00 35.7 70 18 89/48 (62) 94 Room Air 08/05/20 16:00 Room Air 08/05/20 12:00 Room Air 08/05/20 11:39 35.8 86 20 102/69 (80) 94 Room Air 08/05/20 11:37 112 08/05/20 10:06 95 Room Air 08/05/20 08:00 Room Air 08/05/20 08:00 Room Air 08/05/20 07:45 107 17 113/74 (87) 93 Room Air 08/05/20 07:35 96 Room Air I & O 08/06/20 07:00 Intake Total 1175 ml Balance 1175 ml Height & Weight Height: 6'1.00" Weight: 205lbs. 0.0oz. 92.931113oq; 29.01 BMI Method: General Appearance: No Apparent Distress, WD/WN HEENT: PERRL/EOMI Neck: Full Range of Motion, Normal Inspection, Non Tender, Supple Respiratory: Chest Non Tender, Lungs Clear, Normal Breath Sounds, No Accessory Muscle Use, No Respiratory Distress Cardiovascular: No Edema, No JVD, No Murmur, Normal Peripheral Pulses, Irregularly Irregular, Tachycardia Capillary Refill: Less Than 3 Seconds Extremity: Non Tender, No Calf Tenderness Neurologic/Psychiatric: Alert, Oriented x3 Results Lab Laboratory Tests 08/04/20 11:22 08/05/20 02:58 08/05/20 03:10 08/06/20 03:05 Assessment/Plan Assessment/Plan Afib RVR -Start Cardizem gtt -Afib controlled with Cardizem. -IVF -Cardiology following Mediastinal mass --Plan is for bronchoscopy with EBUS today. BERTHA NGUYEN DO Aug 06, 2020 07:06
[2020-08-06] MEDS ORDERED: PHENYLEPHRINE 100 MCG/ML 10 ML (ANESTHESIA) SYR ONE (07:28)
[2020-08-06] MEDS: ADVAIR HFA 115/21 MCG INHALER 8 GM IH SCH (08:15)
[2020-08-06 09:30] VITALS: BP 111/97
[2020-08-06] MEDS: PANTOPRAZOLE 40 MG (PROTONIX) TAB PO SCH (09:42)
[2020-08-06] MEDS: TAMSULOSIN 0.4 MG (FLOMAX) CAP PO SCH (09:43)
[2020-08-06] MEDS: FINASTERIDE (PROSCAR) 5 MG TAB PO SCH (09:43)
--- NOTE | 2020-08-06 10:14 | Cardiology Progress Note ---
Subjective Date Seen by Provider: Aug 06, 2020 Time Seen by Provider: 10:13 Subjective/Events-last exam Patient is laying down in bed. No new complaint. No chest pain, had bronchoscopy done Review of Systems General: No Chills, No Night Sweats, No Fatigue, No Malaise, No Appetite, No Other HEENT: No Head Aches, No Visual Changes, No Eye Pain, No Ear Pain, No Dysph muna, No Sinus Congestion, No Post Nasal Drip, No Sore Throat, No Other Pulmonary: No Dyspnea, No Cough, No Pleuritic Chest Pain, No Other Cardiovascular: No: Chest Pain, Palpitations, Orthopnea, Paroxysmal Noc. Dyspnea, Edema, Lt Headedness, Other Objective-Cardiology Exam Last Set of Vital Signs Vital Signs 08/06/20 03:21 Temp 35.8 Capillary Refill : Less Than 3 SecondsLess Than 3 Seconds I&O Intake and Output 08/06/20 00:00 Intake Total 1050 ml Balance 1050 ml Intake Oral 1050 ml # Voids 8 # Bowel Movements 3 General: Alert, Oriented X3, Cooperative HEENT: Atraumatic, PERRLA Neck: Supple, No JVD, No Thyromegaly Lungs: Clear to Auscultation, Normal Air Movement Heart: Normal S1, Normal S2, No Murmurs, Other Abdomen: Normal Bowel Sounds, Soft, No Tenderness, No Hepatosplenomegaly, No Masses Extremities: No Clubbing, No Cyanosis, No Edema, Normal Pulses, No Tenderness/Swelling Skin: No Rashes, No Breakdown, No Significant Lesion Neuro: Normal Gait, Normal Speech, Strength at 5/5 X4 Ext, Normal Tone, Sensation Intact Psych/Mental Status: Mental Status NL, Mood NL Results Lab Laboratory Tests 08/06/20 03:05 A/P-Cardiology Admission Diagnosis Afib with RVR Mediastinal mass HTN [place] Assessment/Plan Paroxysmal atrial fibrillation, continue on oral diltiazem and Eliquis, I will discontinue Cardizem drip, okay for discharge from cardiology standpoint Mediastinal mass, had bronchoscopy with Dr. Damon. Recent hospitalization for pneumonia Stress test of December 2014 showed occ PAC, PVC with no evidence of ischemia or infarction H/O asymptomatic sinus bradycardia, continue to monitor. HTN, continue to monitor. BPH Mild bilat carotid arterial disease per u/s by Dr. Layne 2018, continue to monitor as outpatient. Colostomy Documented h/o heavy ETOH usage (6-8 beers per night) GERD Clinical Quality Measures DVT/VTE Risk/Contraindication: Risk Factor Score Per Nursin RFS Level Per Nursing on Admit: 2=Moderate BO LAYNE MD Aug 06, 2020 10:14 am
--- NOTE | 2020-08-06 11:29 | NUR ---
provided prayer and Communion.
[2020-08-06 12:00] VITALS: BP 113/88
--- NOTE | 2020-08-07 07:43 | Anesthesia-General Post-Op ---
General Patient Condition Mental Status/LOC: Same as Preop Cardiovascular: Satisfactory Nausea/Vomiting: Absent Respiratory: Satisfactory Pain: Controlled Complications: Absent Post Op Complications Complications None Follow Up Care/Instructions Patient Instructions None needed. Anesthesia/Patient Condition Patient Condition Patient discharged. Chart reviewed. No anesthesia complications noted. IMANI BRAND CRNA Aug 07, 2020 07:43
--- NOTE | 2020-08-30 07:50 | Discharge Summary ---
Diagnosis/Chief Complaint Date of Admission Aug 06, 2020 at 10:42 Date of Discharge Aug 06, 2020 at 12:10 Discharge Diagnosis Acute respiratory distress secondary to sedation from procedure. Discharge Summary Hospital Course Hospital Course 74yo recently dx with mediastinal mass directly admitted from Endoscopy secondary to Afib RVR. Pt was scheduled for out patient bronchoscopy/EBUS. Pt r efused to be admitted to ICU but agreed to cardiac step down. Procedures None. Discharge Physical Examination Allergies: Coded Allergies: No Known Drug Allergies (Unverified Allergy, Unknown, 01/21/08) Discharge Home Medications Reviewed and agree with Discharge Medication list on patient's Discharge Instruction sheet Instructions to Patient/Family Please see electronic discharge instructions given to patient. Clinical Quality Measures DVT/VTE Risk/Contraindication: Risk Factor Score Per Nursin RFS Level Per Nursing on Admit: 2=Moderate BERTHA NGUYEN DO Aug 30, 2020 07:50
--- NOTE | 2020-09-01 07:25 | Physician Query Clarification ---
[facility] Path Diagnosis Admission/Discharge Admission Date: Aug 06, 2020 at 10:42 Discharge Date: Aug 06, 2020 at 12:10 Dr. 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 Please document a response in Progress Notes or Discharge Summary. 1. Agree with pathological diagnosis of Rt Lung adenocarcinoma with station 7 and 10 R lymph node metastasis?. 2. No - Do not agree with pathology findings of Rt Lung adenocarcinoma with station 7 and 10 R lymph node metastasis?. 3. Other, with explanation of the clinical findings. 4. Clinically undetermined, no explanation for the clinical findings. Is is appropriate for a provider to add additional documentation (addenda) to the record to explain the evaluation & care up to 30 days post-discharge. See [facility] and Patient Record Guidelines below. The [facility] Chapter Record of Care, Standard; RC.01.03.01EP 1: "The hospital has a written policy that required timely entry of information into the medical record." According to [facility] Patient Record Guidelines, ARTICLE XXI. CORRECTIONS AND ADDENDA, Modifications (addenda amendments, corrections and retractions) should be made timely and no later than regulatory requirements for record completion (i.e. 30 days post discharge). Official coding guidelines require coders to query the physician for agreement with pathology findings that occur during the encounter. Coders are not allowed to pull information directly from the path reports. Please remember a lack of response to the above will prompt a phone page by [facility]/Coding staff. In responding to this query, please exercise your independent professional judgment. The purpose of this communication is to more accurately reflect the complexity of your patients condition. The fact that a question is asked does not imply that any particular answer is desired or expected. Thank you for your timely response to this clarification. Requestors name: Cordelia THIS PHYSICIAN QUERY FORM IS A PERMANENT PART OF THE MEDICAL RECORD CORDELIA ALSTON Sep 01, 2020 07:25
== END 2020-08-06 12:10 | disposition home or self-care (01) | DRG 264 ==
LOC: ENDO 06:52 → CSD 08:30 → ENDO 08-06 10:41 → CSD 08-06 10:42
PROVIDERS: ADMIT Internal Medicine Critical Care Medicine; ATTEND Internal Medicine Critical Care Medicine
PROC: 0BBK8ZX Excision of Right Lung, Via Natural or Artificial Opening Endoscopic, Diagnostic (ICD-10-PCS; principal; 2020-08-06)
PROC: 0BDK8ZX Extraction of Right Lung, Via Natural or Artificial Opening Endoscopic, Diagnostic (ICD-10-PCS; 2020-08-06)
PROC: 07D78ZX Extraction of Thorax Lymphatic, Via Natural or Artificial Opening Endoscopic, Diagnostic (ICD-10-PCS; 2020-08-06)
DX: I48.0 Paroxysmal atrial fibrillation (principal); C34.91 Malignant neoplasm of unspecified part of right bronchus or lung; C77.1 Secondary and unspecified malignant neoplasm of intrathoracic lymph nodes; R06.03 Acute respiratory distress; J44.9 Chronic obstructive pulmonary disease, unspecified; K21.9 Gastro-esophageal reflux disease without esophagitis; I10 Essential (primary) hypertension; E78.5 Hyperlipidemia, unspecified; N40.0 Benign prostatic hyperplasia without lower urinary tract symptoms; I65.23 Occlusion and stenosis of bilateral carotid arteries; M19.91 Primary osteoarthritis, unspecified site; R00.1 Bradycardia, unspecified; Z87.891 Personal history of nicotine dependence; Z72.89 Other problems related to lifestyle; Z93.3 Colostomy status; T42.75XA Adverse effect of unspecified antiepileptic and sedative-hypnotic drugs, initial encounter
CPT/HCPCS: 36415; 71045; 80053; 83735; 83880; 84100; 85025; 87015; 87070; 87101; 87116; 87205; 87206; 88112; 88173; 88305; 88344; 94640

== ENCOUNTER → 2020-08-16 | Outpatient (CLI) | payer MEDICARE ==
--- NOTE | 2020-08-16 12:42 | Diagnostic Imaging Report ---
INDICATION: Cough and dyspnea. PA and lateral chest 11:55 a.m. and compared to 08/06/2020. Heart is borderline in size. There is mild central vascular prominence. There is some right perihilar infiltrate versus atelectasis with volume loss in right hemithorax. These findings are unchanged from 08/06/2020. There is no pneumothorax or significant sized pleural effusion IMPRESSION: Mild cardiomegaly. There is some right perihilar atelectasis versus infiltrate which is similar to the prior study with unchanged volume loss in right hemithorax. No pleural fluid or pneumothorax. Dictated by: Dictated on workstation # [id number]
== END ==
LOC: RAD 11:38
PROVIDERS: ATTEND Internal Medicine Critical Care Medicine
DX: I51.7 Cardiomegaly (principal); R05 Cough; R06.00 Dyspnea, unspecified; Z87.891 Personal history of nicotine dependence
CPT/HCPCS: 71046

== ENCOUNTER 2020-08-27 12:14 | Outpatient (RCR) | payer MEDICARE | END 2020-11-25 | disposition home or self-care (01) | LOC: ONC 12:14 | PROVIDERS: ATTEND Internal Medicine Hematology & Oncology | DX: I48.0 Paroxysmal atrial fibrillation (principal); J44.9 Chronic obstructive pulmonary disease, unspecified; I65.23 Occlusion and stenosis of bilateral carotid arteries | CPT/HCPCS: 99214 ==

== ENCOUNTER → 2020-10-25 | Outpatient (CLI) | payer MEDICARE ==
[~2020-10-25] MED LIST changes: +CATHETER FLUSH 10 ML SYR IV PRN; +HOLD METFORMIN - RECEIVED CONTRAST 20 ML VIAL IV SCH; +IOHEXOL 350 MG/ML 100 ML (OMNIPAQUE 350) VIAL IV ONE; +NS 100 ML (IVPB) BAG IV ONE
[2020-10-25 11:24] LABS: BUN/CREATININE RATIO 14; CREATININE SERUM 0.92 MG/DL (0.60-1.30); GFR ESTIMATED > 60
--- NOTE | 2020-10-25 13:17 | Diagnostic Imaging Report ---
PROCEDURE: CT chest, abdomen, and pelvis with contrast. TECHNIQUE: Multiple contiguous axial images were obtained through the chest, abdomen, and pelvis after the administration of intravenous contrast. Auto Exposure Controls were utilized during the CT exam to meet ALARA standards for radiation dose reduction. INDICATION: Lung carcinoma with cough and shortness of air. Correlation is made with prior CT chest from 07/24/2020. No prior CT abdomen and pelvis studies available for comparison. CT CHEST: A right chest wall port has the tip at the SVC right atrial junction. No axillary lymphadenopathy is identified. Right hilar mass with extension into the subcarinal region is again noted. The mass is difficult to separate from adjacent lung parenchymal consolidation. Mass appears to measure at least 7.7 x 5.4 cm. This again significantly narrows the right main pulmonary artery. There is a large bulky right paratracheal soft tissue mass consistent with lymphadenopathy. The dominant lesion measures 4.6 x 3.7 cm compared with 4.2 x 3.7 cm. Left hilum is unremarkable. There is no pericardial fluid. Patient does have a moderate-sized right-sided pleural effusion. There is some increasing atelectasis in the right perihilar right upper lobe as well as some atelectasis in the right lower lobe since the prior study. Left lung remains clear. IMPRESSION: 1. Continued large right hilar mass extending into the subcarinal mediastinum as well as large right paratracheal lymphadenopathy. Overall appearance is similar in size. Patient has had some increasing perihilar atelectasis on the right. There is also large or moderate to large right-sided pleural effusion. CT ABDOMEN AND PELVIS: No discrete liver mass is identified. Gallbladder is surgically absent. No biliary ductal dilatation is seen. Pancreas and spleen are unremarkable. There is a questionable adrenal nodule on the left approximately 12 mm in size. Right adrenal gland is thickened but no discrete mass is detected. Kidneys are unremarkable. Aorta and iliac vessels are heavily calcified. No central retroperitoneal or mesenteric lymphadenopathy is seen. There is a midline ostomy. The intra-abdominal bowel loops are normal in caliber. There is no free fluid or fluid collection. No definite pelvic lymphadenopathy is detected. Bladder is decompressed. Prostate is enlarged. Bony structures are nonacute. IMPRESSION: 1. No evidence of abdominal or pelvic lymphadenopathy or metastatic disease. 2. Prostatomegaly. Dictated by: Dictated on workstation # [id number]
== END ==
LOC: RAD 10:54
DX: C34.2 Malignant neoplasm of middle lobe, bronchus or lung (principal); N40.0 Benign prostatic hyperplasia without lower urinary tract symptoms
CPT/HCPCS: 36415; 71260; 74177; 82565; 84520

== ENCOUNTER → 2020-10-26 | Outpatient (CLI) | payer MEDICARE ==
[~2020-10-26] MED LIST changes: -CATHETER FLUSH 10 ML SYR IV PRN; -HOLD METFORMIN - RECEIVED CONTRAST 20 ML VIAL IV SCH; -IOHEXOL 350 MG/ML 100 ML (OMNIPAQUE 350) VIAL IV ONE; -NS 100 ML (IVPB) BAG IV ONE
[2020-10-26 11:37] LABS: BASOPHILS % (AUTO) 0 % (0-10); EOSINOPHILS % (AUTO) 0 % (0-10); HEMATOCRIT 37 % (40-54); HEMOGLOBIN 12.1 g/dL (13.3-17.7); LYMPHOCYTES # (AUTO) 1.5 10^3/uL (1.0-4.0); LYMPHOCYTES % (AUTO) 30 % (12-44); MEAN CORPUSCULAR HEMOGLOBIN 29 pg (25-34); MEAN CORPUSCULAR HGB CONC 33 g/dL (32-36); MEAN CORPUSCULAR VOLUME 89 fL (80-99); MEAN PLATELET VOLUME 8.7 fL (9.0-12.2); MONOCYTES % (AUTO) 20 % (0-12); NEUTROPHILS # (AUTO) 2.2 10^3/uL (1.8-7.8); NEUTROPHILS % (AUTO) 43 % (42-75); PLATELET COUNT 384 10^3/uL (130-400); WHITE BLOOD COUNT 5.1 10^3/uL (4.3-11.0)
[2020-10-26 12:00] LABS: ALANINE AMINOTRANSFERASE 24 U/L (0-55); ALBUMIN 3.5 GM/DL (3.2-4.5); ALKALINE PHOSPHATASE 52 U/L (40-136); BILIRUBIN,TOTAL 0.5 MG/DL (0.1-1.0); BUN/CREATININE RATIO 13; CALCIUM 8.8 MG/DL (8.5-10.1); CARBON DIOXIDE 26 MMOL/L (21-32); CHLORIDE 102 MMOL/L (98-107); CREATININE SERUM 1.04 MG/DL (0.60-1.30); GFR ESTIMATED > 60; GLUCOSE 92 MG/DL (70-105); POTASSIUM 3.8 MMOL/L (3.6-5.0); SODIUM 140 MMOL/L (135-145); TOTAL PROTEIN 6.6 GM/DL (6.4-8.2)
== END ==
LOC: LAB 11:30
PROVIDERS: ATTEND Internal Medicine
DX: C34.2 Malignant neoplasm of middle lobe, bronchus or lung (principal)
CPT/HCPCS: 36415; 80053; 85025

== ENCOUNTER → 2020-11-15 | Outpatient (CLI) | payer MEDICARE | LOC: LABNPT 08:25 | PROVIDERS: ATTEND Internal Medicine | DX: Z20.822 Contact with and (suspected) exposure to COVID-19 (principal) | CPT/HCPCS: 87635 ==

== ENCOUNTER → 2020-11-30 | Outpatient (CLI) | payer MEDICARE ==
[~2020-11-30] MED LIST changes: +CATHETER FLUSH 10 ML SYR IV PRN; +GADOBUTROL 10 MMOL/10 ML (GADAVIST) VIAL IV ONE; +HOLD METFORMIN - RECEIVED CONTRAST 20 ML VIAL IV SCH; +IOHEXOL 350 MG/ML 100 ML (OMNIPAQUE 350) VIAL IV ONE; +NS 100 ML (IVPB) BAG IV ONE
--- NOTE | 2020-11-30 14:01 | Diagnostic Imaging Report ---
PROCEDURE: CT chest, abdomen, and pelvis with contrast. TECHNIQUE: Multiple contiguous axial images were obtained through the chest, abdomen, and pelvis after the administration of intravenous contrast. Auto Exposure Controls were utilized during the CT exam to meet ALARA standards for radiation dose reduction. INDICATION: Right lung neoplasm, status post chemotherapy. Correlation is made with prior CT from 10/25/2020. CT CHEST: A right hilar mass encasing and narrowing the right main pulmonary artery is again noted. This is somewhat difficult to measure but measures at least 7.4 x 4.1 cm compared with 7.7 x 5.4 cm on prior. Large paratracheal mass at the level of the liban is again seen measuring approximately 3.9 x 4.1 cm compared with 4.6 x 3.7 cm. There is more significant lung parenchymal consolidation and atelectasis on today's study, now with only a small amount of aerated lung in the right upper lobe. The right middle lobe and right lower lobe bronchi appear to be completely occluded. There appears to be an increase in the amount of pleural fluid on the right as well. Left hilum is unremarkable. The left lung appears clear. Axillae are unremarkable. Right chest wall port has its tip at the SVC right atrial junction. IMPRESSION: The right hilar and and right peritracheal masses appear to be similar to perhaps slightly smaller in size however patient has an increased degree of parenchymal consolidation and atelectasis in the right middle and right lower lobes since the prior exam one month earlier. There has been an increase in the amount of pleural fluid on the right side as well. CT ABDOMEN AND PELVIS: No discrete liver mass is identified. Gallbladder is surgically absent. There is no biliary duct dilatation. Pancreas and spleen are unremarkable. There continues to be some thickening to the right adrenal gland. The degree of enlargement of the right adrenal gland appears increased since the prior exam. Nodularity to the left adrenal gland is again noted as well, approximately 13 mm in size compared with 12 on prior exam. Kidneys are unremarkable. Aorta is calcified but nonaneurysmal. There is no central retroperitoneal or mesenteric lymphadenopathy. There appears to be ostomy in the left paramidline abdomen. Bowel loops are normal caliber. No definite obstruction is seen. There is a small amount of free fluid in the right abdomen, indeterminate. Bladder is unremarkable. Prostate is enlarged. No definite pelvic lymphadenopathy is seen. IMPRESSION: 1. Minimal ascites. 2. Prostatomegaly. 3. No evidence of abdominal or pelvic lymphadenopathy or metastatic disease. Dictated by: Dictated on workstation # [id number]
--- NOTE | 2020-11-30 14:11 | Diagnostic Imaging Report ---
PROCEDURE: MR imaging of the brain with and without contrast. TECHNIQUE: Multiplanar, multisequence MR imaging of the brain was performed with and without contrast. INDICATION: Increasing confusion, lung cancer. There are no prior studies available for comparison. There is no mass, shift of the midline or hemorrhage to suggest an acute intracranial abnormality. There is no abnormal signal arising from the brain on the diffusion series to suggest an area of acute ischemia either. Furthermore there is no abnormal enhancement on the postcontrast sequence to suggest neoplastic or infectious process. The ventricles are not abnormally dilated. The FLAIR series does show focal and diffuse areas of increased signal in the periventricular white matter bilaterally. These findings are nonspecific but may be secondary to encephalomalacia from microvascular ischemia. There is also cortical atrophy evident. The degree of atrophy is consistent with the patient's age. The sella is not enlarged and the expected carotid flow voids are evident bilaterally. The orbits are symmetrical and within normal limits. There is mild mucosal thickening of the right maxillary antrum and minimal mucosal thickening of the right mastoid air cells. Sinuses are otherwise generally clear. The 7th and 8th nerve complexes are unremarkable. IMPRESSION: 1. There is no evidence for an acute intracranial abnormality. 2. There is no abnormal enhancement to suggest a neoplastic or infectious process. 3. There are senescent changes including cortical atrophy and periventricular encephalomalacia. 4. There is mild right maxillary sinusitis and minimal right mastoiditis. Dictated by: Dictated on workstation # [id number]
== END ==
LOC: RAD 11:37
PROVIDERS: ATTEND Internal Medicine
DX: C34.2 Malignant neoplasm of middle lobe, bronchus or lung (principal); G93.89 Other specified disorders of brain; G31.9 Degenerative disease of nervous system, unspecified; N40.1 Benign prostatic hyperplasia with lower urinary tract symptoms; J32.0 Chronic maxillary sinusitis; H70.91 Unspecified mastoiditis, right ear; R18.8 Other ascites; Z92.21 Personal history of antineoplastic chemotherapy
CPT/HCPCS: 70553; 71260; 74177

== ENCOUNTER → 2020-12-06 | Outpatient (CLI) | payer MEDICARE ==
[~2020-12-06] MED LIST changes: -CATHETER FLUSH 10 ML SYR IV PRN; -GADOBUTROL 10 MMOL/10 ML (GADAVIST) VIAL IV ONE; -HOLD METFORMIN - RECEIVED CONTRAST 20 ML VIAL IV SCH; -IOHEXOL 350 MG/ML 100 ML (OMNIPAQUE 350) VIAL IV ONE; -NS 100 ML (IVPB) BAG IV ONE
== END ==
LOC: LABNPT 08:21
PROVIDERS: ATTEND Internal Medicine
DX: Z20.822 Contact with and (suspected) exposure to COVID-19 (principal)
CPT/HCPCS: 87635

== ENCOUNTER → 2021-01-03 | Outpatient (CLI) | payer MEDICARE | LOC: LABNPT 08:19 | PROVIDERS: ATTEND Internal Medicine | DX: Z20.822 Contact with and (suspected) exposure to COVID-19 (principal) | CPT/HCPCS: 87635 ==

== ENCOUNTER → 2021-02-08 | Outpatient (CLI) | payer MEDICARE ==
[~2021-02-08] MED LIST changes: +CATHETER FLUSH 10 ML SYR IV PRN; +HOLD METFORMIN - RECEIVED CONTRAST 20 ML VIAL IV SCH; +IOHEXOL 350 MG/ML 100 ML (OMNIPAQUE 350) VIAL IV ONE; +NS 100 ML (IVPB) BAG IV ONE
--- NOTE | 2021-02-08 13:06 | Diagnostic Imaging Report ---
PROCEDURE: CT chest, abdomen, and pelvis with contrast. TECHNIQUE: Multiple contiguous axial images were obtained through the chest, abdomen, and pelvis after the administration of intravenous contrast. Auto Exposure Controls were utilized during the CT exam to meet ALARA standards for radiation dose reduction. INDICATION: Right lung carcinoma. On chemotherapy. Shortness of air. CORRELATION STUDY: CT chest, abdomen and pelvis 11/30/2020 FINDINGS: CT CHEST: Right IJ central line tip at the high right atrium. Heart size borderline enlarged. Scattered coronary artery calcification. No pericardial effusion. Large right paratracheal lymph node mass level of the liban currently 4.8 x 3.9 (Previously 4.1 x 3.9 cm). Goes inseparably with the right hilar mass. There is also extension subcarinal region. In aggregate, this area measures approximately 7.8 x 5.0 cm (previously approximately 7.4 x 4.1 cm). Low-attenuation may reflect some necrosis. Measurements may be slightly larger, there appears to be overall slightly less mass effect and compression upon the adjacent bronchovascular structures. There is significant narrowing of the right main pulmonary artery. Superior vena cava is maintained. Additional lymphadenopathies extending into the right superior paratracheal region as well. Overall improved aeration through the right lung. Small right pleural effusion does persist but overall significantly reduced in size. There is generalized right lung volume loss slightly hyperinflated left lung. Left lung is clear. Trace left pleural effusion. Small pleural catheter has been placed since prior. CT ABDOMEN and PELVIS: Subtle low-density lesions within the liver too small to characterize but may reflect small cysts. Gallbladder absent without bile duct dilatation. Spleen, pancreas unchanged. Nodularity both adrenal glands are present. On the right, approximately 2.7 x 1.8 cm. On the left 1.9 x 1.2 cm. Approximately 2 cm exophytic mass left kidney is present. Increased density without definitive enhancement. Additional parapelvic cysts present. Dense aortoiliac wall calcification, nonaneurysmal. No pathologic enlarged abdominopelvic lymphadenopathy. Gastrointestinal tract presence of Lynn's pouch and left lower quadrant ostomy. Colon is relatively decompressed. A few fluid and gas-filled loops of small bowel are present. No evidence for obstruction. Slight haziness about the mesentery. Also mild subcutaneous edema. Additional surgical changes with hernia mesh repair. Small amount of fluid in the right lower quadrant likely associated with the gastrointestinal tract. Trace amount of pelvic fluid. Urinary bladder decompressed. Prostate gland enlarged. Osseous structures without acute abnormality. IMPRESSION: CT CHEST: 1. Right hilar and right paratracheal lymph node masses do persisting or measuring slightly larger. However, may be some necrosis within the masses. Additionally, the compression mass effect upon the adjacent right hilar bronchovascular structures appears slightly diminished. 2. Improved aeration to the right lung with significant reduction in right pleural effusion post pleural catheter placement. Fluid does remain. CT ABDOMEN and PELVIS: 1. Postoperative changes of Lynn's pouch with left-sided ostomy. No bowel obstruction. 2. Unchanged appearance bilateral adrenal gland nodules. Exophytic mass left kidney may be a cyst that does demonstrates slight increased density. When able, correlation with renal ultrasound imaging recommended. Dictated by: Dictated on workstation # [id number]
--- NOTE | 2021-02-08 14:53 | Diagnostic Imaging Report ---
EXAMINATION: Whole body bone scan. INDICATION: Lung cancer. This study was performed following administration of 26.9 mCi of 99m technetium MDP. Anterior and posterior whole-body images were obtained as well as lateral views of the torso. There are no prior studies available for comparison. This exam is less than optimal as the pelvis and proximal thigh and proximal knee on the left are partially obscured by radiotracer contamination from the bladder.. There is no abnormal uptake in the visualized osseous structures to suggest metastatic disease or an acute abnormality. Both kidneys do show excretion of the radiotracer. IMPRESSION: There is no evidence for metastatic disease or for an acute abnormality on this suboptimal exam. Dictated by: Dictated on workstation # [id number]
== END ==
LOC: CARD 10:22
PROVIDERS: ATTEND Internal Medicine
DX: C34.2 Malignant neoplasm of middle lobe, bronchus or lung (principal); J90 Pleural effusion, not elsewhere classified; C77.1 Secondary and unspecified malignant neoplasm of intrathoracic lymph nodes; E27.8 Other specified disorders of adrenal gland; N28.89 Other specified disorders of kidney and ureter; Z98.890 Other specified postprocedural states
CPT/HCPCS: 71260; 74177; 78306; A9503